=== PATIENT | male | born 1935 | race Caucasian/White ===

== ENCOUNTER 2020-03-02 09:02 | Outpatient (REF) | payer MEDICARE, SELFPAY ==
[2020-03-02 15:41] LABS: Glucose Urine UA NEG (NEG); Leukocyte Esterase Urine NEG (NEG); MANUAL DIFF FLAG NO; Nitrite Urine NEG (NEG); PH 5.5 (5.0-8.0); Urine Blood 2+ (NEG); Urine Ketones NEG (NEG); Urine Protein NEG (NEG-TRACE)
[2020-03-02 15:45] LABS: Basophils Percent Auto 0.6 % (0-2); Eosinophils Percent Auto 0.8 % (0-4); Hematocrit 40.2 % (42-52); Hemoglobin 12.9 g/dl (14.0-18.0); Imm Gran Abs Auto 0.11 X10*3/uL (0.00-0.03); Imm Gran Pct Auto 2.1 % (0.0-0.4); Lymphocytes Absolute Auto 0.8 X10*3/uL (1.2-4.9); Lymphocytes Percent Auto 16.1 % (20-40); Mean Corpuscular HGB Conc 32.1 g/dl (31.0-36.0); Mean Corpuscular Hemoglobin 31.5 pg (27.0-33.0); Mean Corpuscular Volume 98.3 fL (80-98); Mean Platelet Volume 11.6 fL (9.4-12.4); Monocytes Absolute Auto 0.4 X10*3/uL (0.1-1.2); Monocytes Percent Auto 7.8 % (2-11); NRBC Pct Auto 0.4 /100WBC (0.0-0.2); Neutrophils Absolute Auto 3.7 X10*3/uL (2.0-8.3); Neutrophils Percent Auto 72.6 % (45-73); Platelet Count 143 X10*3/uL (160-400); Red Blood Count 4.09 X10*6/uL (4.60-5.80); Red Cell Distribution Width 14.8 % (11.0-16.0); White Blood Count 5.1 X10*3/uL (4.8-10.8)
[2020-03-02 15:47] LABS: Appearance Urine CLEAR; Color Urine YELLOW
[2020-03-02 15:55] LABS: Squamous Epithelial Cell Urine 3+ /LPF; WBC Urine 0-2 /HPF (0-4)
[2020-03-02 16:14] LABS: B Type Natriuretic Peptide 977 pg/mL (<100)
[2020-03-02 16:30] LABS: Thyroid Stimulating Hormone 0.72 mIU/mL (0.32-4.0)
[2020-03-02 16:32] LABS: Alanine Aminotransferase < 6 U/L (0-40); Alkaline Phosphatase 1767 U/L (39-117); Anion Gap 14 (12-20); Aspartate Amino Transferase 23 U/L (5-37); Bilirubin Total 1.2 mg/dL (0.0-1.0); Blood Urea Nitrogen 32 mg/dL (9-16); Calcium 8.3 mg/dL (8.4-10.2); Carbon Dioxide 27 mmol/L (22-29); Chloride 107 mmol/L (96-108); Estimated Glomerular Filt Rate 59; Glucose Random 132 mg/dL (60-115); Potassium 3.9 mmol/l (3.3-5.1); Sodium 144 mmol/L (135-145); Total Protein 6.4 g/dL (6.5-8.0)
== END 2020-03-02 09:03 | disposition home or self-care (01) ==
LOC: CF 09:02
PROVIDERS: PCP Internal Medicine; Referring Provider Internal Medicine; Visit Provider Internal Medicine
DX: I25.10 Atherosclerotic heart disease of native coronary artery without angina pectoris (principal); I25.5 Ischemic cardiomyopathy
CPT/HCPCS: 36415; 80053; 81001; 83880; 84443; 85025; 85610

== ENCOUNTER 2020-03-03 14:29 | Outpatient (REF) | payer MEDICARE, SELFPAY ==
--- NOTE | 2020-03-03 | US_ITS ---
EXAMINATION: US VENOUS ULTRASOUND WITH DOPPLER LOWER EXTREMITY, LEFT CLINICAL INFORMATION: Left leg swelling. COMPARISON: Previous exam December 2018 TECHNIQUE: Ultrasound of the deep veins is performed from the hip to the calf with compression sonography and color and pulse Doppler assessment. Spectral analysis with color-flow imaging is performed. FINDINGS: There is normal venous compression and respiratory variation and augmented flow. The visualized common femoral vein, superficial femoral vein, profunda femoral vein, popliteal vein, and the trifurcation region show no evidence of deep venous thrombosis. There is very slow flow or Rouleaux flow. There also appear to be markedly thickened valve leaflets in the superficial femoral and popliteal veins. These are new findings compared to 2019 exam. There is no significant popliteal fossa cyst. US/US venous duplex LE LT IMPRESSION: No DVT demonstrated in the left lower extremity. There is very slow flow or Rouleaux flow and thickening of valve leaflets in the superficial femoral and popliteal veins. This is a new finding compared to December 2018 exam. Possible Covid infection should be considered. Short-term followup ultrasound exam may be helpful.
== END 2020-03-03 14:30 | disposition home or self-care (01) ==
LOC: HO.HMGCX 14:29
PROVIDERS: PCP Internal Medicine; Visit Provider Internal Medicine
DX: I82.409 Acute embolism and thrombosis of unspecified deep veins of unspecified lower extremity (principal)
CPT/HCPCS: 93971

== ENCOUNTER 2020-03-04 11:11 | Outpatient (REF) | payer MEDICARE, SELFPAY ==
[2020-03-04 13:19] LABS: C Reactive Protein 3.05 mg/dL (< or = 0.50)
[2020-03-04 13:45] LABS: Erythrocyte Sedimentation Rate 39 MM/HR (0-15)
== END 2020-03-04 11:12 | disposition home or self-care (01) ==
LOC: HO.LAB 11:11
PROVIDERS: PCP Internal Medicine; Visit Provider Internal Medicine
DX: Z20.828 Contact with and (suspected) exposure to other viral communicable diseases (principal)
CPT/HCPCS: 36415; 85652; 86140; 87635

== ENCOUNTER 2020-03-04 13:30 | Outpatient (REF) | payer SELFPAY | END 2020-03-04 13:31 | disposition home or self-care (01) | LOC: HO.HAP 13:30 | PROVIDERS: PCP Internal Medicine; Visit Provider Internal Medicine | DX: Z46.1 Encounter for fitting and adjustment of hearing aid (principal) | CPT/HCPCS: 85610; 92700 ==

== ENCOUNTER 2020-03-04 16:00 | Inpatient (IN) | payer MEDICARE, SELFPAY ==
[2020-03-04 16:18] VITALS: BP 99/66; PULSE 87; RESP 16; TEMP 36.4; O2SAT 95; BMI 20.7
[2020-03-04 16:36] VITALS: BP 99/72; PULSE 102; RESP 12; TEMP 36.5; O2SAT 95
--- NOTE | 2020-03-04 16:53 | XR_ITS ---
EXAMINATION: XR CHEST CLINICAL INFORMATION: CHF COMPARISON: Chest x-ray 12/11/2019 TECHNIQUE: Frontal view of the chest was obtained. FINDINGS: Cardiac silhouette is at the upper limits of normal in size. Ectatic thoracic aorta. The lungs are hyperinflated consistent with emphysematous changes. Linear opacities of the left lung base are most consistent with scarring. No gross lobar consolidation present. No pleural effusion or pneumothorax. XR/XR chest 1V IMPRESSION: Emphysematous changes of the lungs with bibasilar scarring. No lobar consolidation appreciated.
--- NOTE | 2020-03-04 16:53 | ECG_ITS ---
Test Reason : DYSPNEA Blood Pressure : / mmHG Vent. Rate : 089 BPM Atrial Rate : 090 BPM P-R Int : 000 ms QRS Dur : 090 ms QT Int : 386 ms P-R-T Axes : 000 -28 -18 degrees QTc Int : 469 ms Atrial fibrillation RSR' or QR pattern in V1 suggests right ventricular conduction delay Nonspecific ST abnormality Abnormal ECG When compared with ECG of 11-DEC-2019 18:11, No significant change was found Referred By: Juan Ferro Electronically Signed By:APRIL FARAH MD
--- NOTE | 2020-03-04 17:03 | ED_ITS ---
HPI - SOB/Dyspnea General Chief Complaint: Dyspnea Stated Complaint: chf Time Seen by Provider: 03/04/20 16:52 Source: patient and family Mode of arrival: ambulatory Limitations: altered mental status History of Present Illness HPI Narrative: patient's history of dementia [id number] HPI mostly from the . Patient does have history of AFib a 3 sclerotic heart disease status post cardiac stents on furosemide for chronic CHF noticed increased swelling of the legs especially the left for last 1 week at the Doppler done 2 days ago which was negative for blood clot lab showed elevated BNP 977 patient gets short winded when he ambulates otherwise at baseline in this nice does not have any shortness of breath patient denies any chest pain. Patient was sent by his primary care doctor for further evaluation and admission. Patient is on Coumadin for AFib and today INR was 3.5 patient denied any chest pain no fever no cough Related Data Home Medications Medication Instructions Recorded Confirmed atorvastatin 40 mg PO DAILY 03/04/20 03/04/20 carbidopa-levodopa 1 tab PO TID 03/04/20 03/04/20 donepezil 10 mg PO BEDTIME 03/04/20 03/04/20 furosemide 20 mg PO DAILY 03/04/20 03/04/20 metoprolol tartrate 25 mg PO BID 03/04/20 03/04/20 warfarin 2.5 mg PO SUTUTHSA@1600 03/04/20 03/04/20 warfarin 5 mg PO MOWEFR@1600 03/04/20 03/04/20 Previous Rx's Medication Instructions Recorded warfarin 5 mg tablet 5 mg PO DAILY #90 tab 03/02/20 Allergies Allergy/AdvReac Type Severity Reaction Status Date / Time penicillin V Allergy Unknown Rash Unverified 03/04/20 16:35 Penicillins Allergy Unknown SKIN Unverified 03/04/20 16:35 EXCORIATION HANDS Review of Systems Review of Systems: REVIEW OF SYSTEMS: Pertinent positives and negatives are stated above in the history. limited ROS because of dementia mostly given by his GEN: no fevers, chills, fatigue HEENT: no nasal congestion, sore throat, ear pain NEURO: no headache, dizziness, focal weakness PULM: no cough, CV: no chest pain, palpitations, LE edema ABD: no abdominal pain, nausea, vomiting, diarrhea : no dysuria, urgency, frequency SKIN: no rash ROS otherwise negative x 10 PMFSH Past Medical History Medical History A-fib CHF (congestive heart failure) CVA (cerebral vascular accident) Dementia High cholesterol [place] (hard of hearing) Parkinsons Social History Social History Alcohol intake: never Smoked in Last 30 Days: No Use of substances other than those prescribed or required for medical reasons: No Advance Directives: No Advance Directives Information Provided: No Physical Exam Vital Signs: Vital Signs: Vital Signs Temp Pulse Resp BP Pulse Ox 03/04/20 22:00 98.0 F 95 16 115/73 95 03/04/20 19:22 98.7 F 104 H 18 115/73 95 03/04/20 16:36 97.7 F 102 H 12 99/72 95 03/04/20 16:18 97.6 F 87 16 99/66 95 Body Mass Index 20.7 VITAL SIGNS: Reviewed. GENERAL: Well developed, thin built, in no acute distress. HEAD: Normocephalic/atraumatic, normal oral mucosa EYES: PERRLA, EOMI intact without pain, no nystagmus/pallor/icterus noted, hard of hearing EARS: Ext canals without abnormality, NOSE: Nares patent bilateral OROPHARYNX: no oral lesions noted, NECK: Supple, no adenopathy LUNGS: Normal breath sounds. No adventitious sounds or accessory muscle use CARDIOVASCULAR: IRRegular rate and rhythm without noted murmurs, no JVD 2+ leg edema left > right ABDOMEN: Soft, non-tender, non-distended with bowel sounds. No rigidity. No guarding. No palpable masses or hernias noted MUSCULOSKELETAL: No tenderness, deformities, or effusions noted on gross inspection. EXTREMITIES: No cyanosis, clubbing or edema. SKIN: Inspection of the skin reveals no rashes, ulcerations, jaundice, pallor, o r petechiae NEUROLOGIC: Alert and oriented x 2. Strength and sensation to light touch were grossly intact x 4. Course Course Course Narrative: patient with CHF with symptom symptomatic shortness of breath on minimal activities already on Lasix at home will continue same IV , also noticed that patient's alkaline phosphatase was significantly elevated CT scan abdomen showed multiple metastatic lesions in the spine primary source unknown also patient renal functions have distributed in last 2 days creatinine is increased from 1.1 to 2.02 will admit patient for further evaluation and management MDM - SOB/Dyspnea Lab Data Result diagrams: 03/04/20 17:22 03/04/20 17:22 Labs: Lab Results 03/04/20 03/04/20 03/04/20 Range/Units 17:22 17:22 17:22 WBC 5.1 (4.8-10.8) X10*3/uL RBC 3.73 L (4.60-5.80) X10*6/uL Hgb 12.0 L (14.0-18.0) g/dl Hct 36.5 L (42-52) % MCV 97.9 (80-98) fL MCH 32.2 (27.0-33.0) pg MCHC 32.9 (31.0-36.0) g/dl RDW 14.7 (11.0-16.0) % Plt Count 130 L (160-400) X10*3/uL MPV 11.3 (9.4-12.4) fL Immature Gran % (Auto) 1.8 H (0.0-0.4) % Neut % (Auto) 75.0 H (45-73) % Lymph % (Auto) 13.6 L (20-40) % Griggs % (Auto) 8.8 (2-11) % Eos % (Auto) 0.6 (0-4) % Baso % (Auto) 0.2 (0-2) % Lymph # (Auto) 0.7 L (1.2-4.9) X10*3/uL Griggs # (Auto) 0.5 (0.1-1.2) X10*3/uL Eos # (Auto) 0.0 (0.0-0.4) X10*3/uL Baso # (Auto) 0.0 (0.0-0.2) X10*3/uL Abs Immat Gran (auto) 0.09 H (0.00-0.03) X10*3/uL Absolute Neuts (auto) 3.9 (2.0-8.3) X10*3/uL Absolute Nucleated RBC 0.000 (0.0-0.012) X10*3/uL Nucleated RBC % (auto) 0.0 (0.0-0.2) /100WBC Smear Tech's Comments VERIFIED Hold Blue Top Sodium 143 (135-145) mmol/L Potassium 4.4 (3.3-5.1) mmol/l Chloride 107 (96-108) mmol/L Carbon Dioxide 24 (22-29) mmol/L Anion Gap 16 (12-20) BUN 45 H (9-16) mg/dL Creatinine 2.02 H (0.5-1.4) mg/dL Estim Creat Clear Calc 23.7 Estimated GFR 32 Random Glucose 98 (60-115) mg/dL Calcium 8.0 L (8.4-10.2) mg/dL Total Bilirubin 1.0 (0.0-1.0) mg/dL GGT (11-51) U/L AST 22 (5-37) U/L ALT < 6 (0-40) U/L Alkaline Phosphatase 1705 H (39-117) U/L Troponin I High Sens 39.5 H (<3.5-35.0) ng/L B-Natriuretic Peptide (<100) pg/mL Total Protein 6.2 L (6.5-8.0) g/dL Albumin 3.8 (3.5-5.0) g/dL Coronavirus (PCR) (Negative) 03/04/20 03/04/20 03/04/20 Range/Units 17:22 17:22 20:41 WBC (4.8-10.8) X10*3/uL RBC (4.60-5.80) X10*6/uL Hgb (14.0-18.0) g/dl Hct (42-52) % MCV (80-98) fL MCH (27.0-33.0) pg MCHC (31.0-36.0) g/dl RDW (11.0-16.0) % Plt Count (160-400) X10*3/uL MPV (9.4-12.4) fL Immature Gran % (Auto) (0.0-0.4) % Neut % (Auto) (45-73) % Lymph % (Auto) (20-40) % Griggs % (Auto) (2-11) % Eos % (Auto) (0-4) % Baso % (Auto) (0-2) % Lymph # (Auto) (1.2-4.9) X10*3/uL Griggs # (Auto) (0.1-1.2) X10*3/uL Eos # (Auto) (0.0-0.4) X10*3/uL Baso # (Auto) (0.0-0.2) X10*3/uL Abs Immat Gran (auto) (0.00-0.03) X10*3/uL Absolute Neuts (auto) (2.0-8.3) X10*3/uL Absolute Nucleated RBC (0.0-0.012) X10*3/uL Nucleated RBC % (auto) (0.0-0.2) /100WBC Smear Tech's Comments Hold Blue Top SEE NOTE Sodium (135-145) mmol/L Potassium (3.3-5.1) mmol/l Chloride (96-108) mmol/L Carbon Dioxide (22-29) mmol/L Anion Gap (12-20) BUN (9-16) mg/dL Creatinine (0.5-1.4) mg/dL Estim Creat Clear Calc Estimated GFR Random Glucose (60-115) mg/dL Calcium (8.4-10.2) mg/dL Total Bilirubin (0.0-1.0) mg/dL GGT 15 (11-51) U/L AST (5-37) U/L ALT (0-40) U/L Alkaline Phosphatase (39-117) U/L Troponin I High Sens (<3.5-35.0) ng/L B-Natriuretic Peptide 815 H (<100) pg/mL Total Protein (6.5-8.0) g/dL Albumin (3.5-5.0) g/dL Coronavirus (PCR) (Negative) 03/04/20 03/04/20 Range/Units 20:41 22:22 WBC (4.8-10.8) X10*3/uL RBC (4.60-5.80) X10*6/uL Hgb (14.0-18.0) g/dl Hct (42-52) % MCV (80-98) fL MCH (27.0-33.0) pg MCHC (31.0-36.0) g/dl RDW (11.0-16.0) % Plt Count (160-400) X10*3/uL MPV (9.4-12.4) fL Immature Gran % (Auto) (0.0-0.4) % Neut % (Auto) (45-73) % Lymph % (Auto) (20-40) % Griggs % (Auto) (2-11) % Eos % (Auto) (0-4) % Baso % (Auto) (0-2) % Lymph # (Auto) (1.2-4.9) X10*3/uL [place]gs # (Auto) (0.1-1.2) X10*3/uL Eos # (Auto) (0.0-0.4) X10*3/uL Baso # (Auto) (0.0-0.2) X10*3/uL Abs Immat Gran (auto) (0.00-0.03) X10*3/uL Absolute Neuts (auto) (2.0-8.3) X10*3/uL Absolute Nucleated RBC (0.0-0.012) X10*3/uL Nucleated RBC % (auto) (0.0-0.2) /100WBC Smear Tech's Comments Hold Blue Top Sodium (135-145) mmol/L Potassium (3.3-5.1) mmol/l Chloride (96-108) mmol/L Carbon Dioxide (22-29) mmol/L Anion Gap (12-20) BUN (9-16) mg/dL Creatinine (0.5-1.4) mg/dL Estim Creat Clear Calc Estimated GFR Random Glucose (60-115) mg/dL Calcium (8.4-10.2) mg/dL Total Bilirubin (0.0-1.0) mg/dL GGT (11-51) U/L AST (5-37) U/L ALT (0-40) U/L Alkaline Phosphatase (39-117) U/L Troponin I High Sens 40.7 H (<3.5-35.0) ng/L B-Natriuretic Peptide (<100) pg/mL Total Protein (6.5-8.0) g/dL Albumin (3.5-5.0) g/dL Coronavirus (PCR) NEGATIVE (Negative) Discharge Plan Discharge Clinical Impression: Congestive heart failure Qualifiers: Heart failure type: systolic Heart failure chronicity: acute Qualified Code(s): I50.21 - Acute systolic (congestive) heart failure Renal failure, acute Qualifiers: Acute renal failure type: with acute tubular necrosis Qualified Code(s): N17.0 - Acute kidney failure with tubular necrosis Metastasis Qualifiers: Area of secondary neoplastic involvement: unspecified site Qualified Code(s): 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
[2020-03-04] MEDS: Furosemide 20 MG/2 ML VIAL IVPUSH (17:30)
[2020-03-04 17:33] LABS: MANUAL DIFF FLAG SCAN; Mean Corpuscular Volume 97.9 fL (80-98); PLT CLUMP 1; Red Cell Distribution Width 14.7 % (11.0-16.0); SCAN SMEAR FLAG 1
[2020-03-04 17:35] LABS: Basophils Percent Auto 0.2 % (0-2); Eosinophils Percent Auto 0.6 % (0-4); Hematocrit 36.5 % (42-52); Imm Gran Abs Auto 0.09 X10*3/uL (0.00-0.03); Imm Gran Pct Auto 1.8 % (0.0-0.4); Lymphocytes Absolute Auto 0.7 X10*3/uL (1.2-4.9); Lymphocytes Percent Auto 13.6 % (20-40); Mean Corpuscular HGB Conc 32.9 g/dl (31.0-36.0); Mean Corpuscular Hemoglobin 32.2 pg (27.0-33.0); Mean Platelet Volume 11.3 fL (9.4-12.4); Monocytes Absolute Auto 0.5 X10*3/uL (0.1-1.2); Monocytes Percent Auto 8.8 % (2-11); Neutrophils Absolute Auto 3.9 X10*3/uL (2.0-8.3); Platelet Count 130 X10*3/uL (160-400); Red Blood Count 3.73 X10*6/uL (4.60-5.80); White Blood Count 5.1 X10*3/uL (4.8-10.8)
[2020-03-04 17:55] LABS: SLIDE REVIEW VERIFIED
[2020-03-04 18:35] LABS: B Type Natriuretic Peptide 815 pg/mL (<100)
[2020-03-04 18:41] LABS: Albumin Level 3.8 g/dL (3.5-5.0); Anion Gap 16 (12-20); Blood Urea Nitrogen 45 mg/dL (9-16); Carbon Dioxide 24 mmol/L (22-29); Chloride 107 mmol/L (96-108); Creatinine Clr Calc Pharmacy 23.7; Estimated Glomerular Filt Rate 32; Glucose Random 98 mg/dL (60-115); Potassium 4.4 mmol/l (3.3-5.1); Sodium 143 mmol/L (135-145); Total Protein 6.2 g/dL (6.5-8.0); Troponin-I High Sensitivity 39.5 ng/L (<3.5-35.0)
[2020-03-04 18:52] LABS: Alanine Aminotransferase < 6 U/L (0-40); Alkaline Phosphatase 1705 U/L (39-117); Aspartate Amino Transferase 22 U/L (5-37)
--- NOTE | 2020-03-04 18:58 | PC.NURSE ---
PT ARRIVES REFERRED FROM URGENT CARE C/O DYSPNEA, MALAISE, ABNORMAL LABS. HX DEMENTIA. DELROY AT BEDSIDE. 22G IN L FOREARM. LS DIM THROUGHOUT. LEFT LEG SWELLING OVER PAST FEW DAYS. DELROY HAD TO LEAVE BEDSIDE [phone], [phone] CELLPHONE. WOULD LIKE UPDATES
[2020-03-04 19:22] VITALS: BP 115/73; PULSE 104; RESP 18; TEMP 37.1; O2SAT 95
--- NOTE | 2020-03-04 19:28 | CT_ITS ---
EXAMINATION: CT ABDOMEN AND PELVIS WITHOUT CONTRAST CLINICAL INFORMATION: elevated alkaline phosphatase etiology? . COMPARISON: 02/23/2019 CT scan of the pelvis. TECHNIQUE: Multidetector volumetric imaging was performed from the superior aspect of the liver through the pubic symphysis without contrast per request. Sagittal and coronal reformatted images were obtained on the technologist workstation. This CT examination was performed using dose optimization techniques as appropriate, variously including the following: *Automated exposure control *Adjustment of mA and/or kV according to patient size (this includes techniques or standardized protocols for targeted exams where dose is matched to indication/reason for exam; i.e. extremities or head) *Use of iterative reconstruction technique DLP: 388 mGy-cm. FINDINGS: LUNG BASES: Linear regions of scarring or atelectasis are seen at both lung bases. Extensive vascular calcification within the coronary vessels LIVER, GALLBLADDER, BILIARY TREE: The non-contrast liver is normal in size, shape, and attenuation. No focal hepatic lesion or biliary ductal dilatation is present. The gallbladder is unremarkable with no evidence of radiopaque gallstones, gallbladder wall thickening, or obvious pericholecystic inflammatory changes. PANCREAS: Not well delineated due to the lack of significant intra-abdominal fat. SPLEEN: Unremarkable. ADRENAL GLANDS: Unremarkable. KIDNEYS AND URETERS: Mild fullness to both renal collecting systems. Ureters are difficult to follow however due to lack of significant intra-abdominal fat. BLADDER: Dependent bladder calculi again noted. Bladder is distended. GASTROINTESTINAL TRACT: There is scattered colonic diverticula noted. I do not appreciate any obstructive changes. Fine detailed bowel is difficult to assess due to the lack of significant intra-abdominal fat ABDOMINAL WALL: Diffuse cachexia. LYMPHOVASCULAR STRUCTURES: Marked vascular calcification within the aorta iliac system. I do not appreciate any bulky adenopathy. PELVIC VISCERA: Prostatic calcifications noted OSSEUS STRUCTURES: Unfortunately there is now diffuse sclerotic bony metastatic lesions seen throughout the visualized hips, pelvis, spine, and ribs. The bones are more normal appearance on the 02/23/2019 CT scan of the pelvis. Compression hip screw in the right femur is partially visualized. CT/CT abdomen pelvis wo con IMPRESSION: Unfortunately there is now diffuse sclerotic metastatic disease seen throughout the visualized bony structures. This had a more normal appearance on the prior pelvic CT scan. Clinical correlation and correlation with nuclear medicine bone scan may be helpful to define further. There is diffuse cachexia limiting evaluation otherwise. The bladder is relatively distended with the fullness to both renal pelvises. Bladder calculi noted suggesting component of chronic bladder outlet obstruction.
[2020-03-04 21:17] LABS: Gamma Glutamyl Transpeptidase 15 U/L (11-51)
[2020-03-04 21:40] LABS: Troponin-I High Sensitivity 40.7 ng/L (<3.5-35.0)
[2020-03-04 22:00] VITALS: BP 115/73; PULSE 95; RESP 16; TEMP 36.7; O2SAT 95
--- NOTE | 2020-03-04 22:53 | P.HPIM_ITS ---
History of Present Illness Date of Service: 03/04/20 Chief Complaint: Leg swelling This is a 84 yo M with pmhx A.fib on coumadin, HTN, vascular dementia , parkinsons ds who presents to the hospital Leg swelling. History is obtained from as patient is very hard of hearing and is refusing to wear his hearing aid. According to the patient has been suffering from swelling in his legs, left more than right, as well as increased shortness of breath on exertion over the past few weaks. reports that they have been to pcp which ordered labs, venous dupplex and they followed up today. Was first concerned for cellulitis, but after seeing the lab results, Primary care asked pt and his to go to the hospital. reports that pt has been becoming progressively more sob and has been needing to use his walker because he would need to sit down after walking a short distance. SHe denies pt reporting any cp, he has not had any fever or chills. He Has not reported any abdominal pain nausea or vomiting, diarrhea or constipation. She denies patient complaining of any urinary symptoms. On arrival to the ED hemodynamically stable with no significant abnormal vitals lab significant for BUN of 45 with a creatinine of 2.02 ( 1.18 in the past day), alk-phos of 1705, high sensitivity troponin of 39.5, repeat of 40.7, BNP of 977 on outpatient diagnostic and 815 on repeat labs in the ED UA pending chest x-ray shows: emphysematous changes of the lung with bibasilar scarring. No lobarconsolidation appreciated. due to elevated alk-phos, CT of the abdomen was ordered which showed diffuse sclerotic metastatic disease seen throughout the visualized bony structures. Past medical history: congestive heart failure,Parkinson's disease, vascular dementia, stroke, atrial fibrillation, HLD, hypertension past surgical history: Hernia repair family history: Mother had pancreatic cancer social history: Lives with his , uses a cane but has been using a walker lately due to shortness of breath, denies any tobacco alcohol or illicit drugs at this time Review of Systems Review of Systems: Yes all other systems are reviewed and are negative [facility] Medical History A-fib CHF (congestive heart failure) CVA (cerebral vascular accident) Dementia High cholesterol [place] (hard of hearing) Parkinsons Social History Alcohol intake: never Smoked in Last 30 Days: No Use of substances other than those prescribed or required for medical reasons: No Advance Directives: No Advance Directives Information Provided: No Meds Allergies Allergy/AdvReac Type Severity Reaction Status Date / Time penicillin V Allergy Unknown Rash Unverified 03/04/20 16:35 Penicillins Allergy Unknown SKIN Unverified 03/04/20 16:35 EXCORIATION HANDS Home Medications Medication Instructions Recorded Confirmed Type atorvastatin 40 mg PO DAILY 03/04/20 03/04/20 History carbidopa-levodopa 1 tab PO TID 03/04/20 03/04/20 History donepezil 10 mg PO BEDTIME 03/04/20 03/04/20 History furosemide 20 mg PO DAILY 03/04/20 03/04/20 History metoprolol tartrate 25 mg PO BID 03/04/20 03/04/20 History warfarin 2.5 mg PO SUTUTHSA@1600 03/04/20 03/04/20 History warfarin 5 mg PO MOWEFR@1600 03/04/20 03/04/20 History Physical Exam Vital Signs and Narrative: Vital Signs: Last Vital Signs Temp 98.0 F 03/04/20 22:00 Pulse 95 03/04/20 22:00 Resp 16 03/04/20 22:00 BP 115/73 03/04/20 22:00 Pulse Ox 95 03/04/20 22:00 Body Mass Index 20.7 Const: Other: very hard of hearing and is refusing to wear his hearing aid General: comfortable and no acute distress HENMT: Other: hard of hearing Eyes: General: appearance normal, both eyes and all related structures Pupils: Equal, round and reactive pupils present Resp: Effort & Inspection: normal respiratory effort Auscultation: clear to auscultation bilaterally Cardio: Rate: regular rate Rhythm: regular rhythm GI: Palpation (GI): Soft to palpation Auscultation: normal bowel sounds Skin: General skin exam: no rashes or lesions noted Neuro: Cranial nerves: Yes Equal, round and reactive pupils present Cognition (Neuro): normal cognition Extrem: Other: 2+ pitting edema bilaterally Results Labs Labs: Laboratory Tests 03/04/20 03/04/20 03/04/20 17:22 17:22 17:22 WBC 5.1 RBC 3.73 L Hgb 12.0 L Hct 36.5 L MCV 97.9 MCH 32.2 MCHC 32.9 RDW 14.7 Plt Count 130 L MPV 11.3 Immature Gran % (Auto) 1.8 H Neut % (Auto) 75.0 H Lymph % (Auto) 13.6 L Coffee % (Auto) 8.8 Eos % (Auto) 0.6 Baso % (Auto) 0.2 Lymph # (Auto) 0.7 L Coffee # (Auto) 0.5 Eos # (Auto) 0.0 Baso # (Auto) 0.0 Abs Immat Gran (auto) 0.09 H Absolute Neuts (auto) 3.9 Absolute Nucleated RBC 0.000 Nucleated RBC % (auto) 0.0 Smear Tech's Comments VERIFIED Hold Blue Top Sodium 143 Potassium 4.4 Chloride 107 Carbon Dioxide 24 Anion Gap 16 BUN 45 H Creatinine 2.02 H Estim Creat Clear Calc 23.7 Estimated GFR 32 Random Glucose 98 Calcium 8.0 L Total Bilirubin 1.0 GGT AST 22 ALT < 6 Alkaline Phosphatase 1705 H Troponin I High Sens 39.5 H B-Natriuretic Peptide Total Protein 6.2 L Albumin 3.8 03/04/20 03/04/20 03/04/20 17:22 17:22 20:41 WBC RBC Hgb Hct MCV MCH MCHC RDW Plt Count MPV Immature Gran % (Auto) Neut % (Auto) Lymph % (Auto) Coffee % (Auto) Eos % (Auto) Baso % (Auto) Lymph # (Auto) Coffee # (Auto) Eos # (Auto) Baso # (Auto) Abs Immat Gran (auto) Absolute Neuts (auto) Absolute Nucleated RBC Nucleated RBC % (auto) Smear Tech's Comments Hold Blue Top SEE NOTE Sodium Potassium Chloride Carbon Dioxide Anion Gap BUN Creatinine Estim Creat Clear Calc Estimated GFR Random Glucose Calcium Total Bilirubin GGT 15 AST ALT Alkaline Phosphatase Troponin I High Sens B-Natriuretic Peptide 815 H Total Protein Albumin 03/04/20 20:41 WBC RBC Hgb Hct MCV MCH MCHC RDW Plt Count MPV Immature Gran % (Auto) Neut % (Auto) Lymph % (Auto) Coffee % (Auto) Eos % (Auto) Baso % (Auto) Lymph # (Auto) Coffee # (Auto) Eos # (Auto) Baso # (Auto) Abs Immat Gran (auto) Absolute Neuts (auto) Absolute Nucleated RBC Nucleated RBC % (auto) Smear Tech's Comments Hold Blue Top Sodium Potassium Chloride Carbon Dioxide Anion Gap BUN Creatinine Estim Creat Clear Calc Estimated GFR Random Glucose Calcium Total Bilirubin GGT AST ALT Alkaline Phosphatase Troponin I High Sens 40.7 H B-Natriuretic Peptide Total Protein Albumin Imaging CT scan - abdomen: Radiologist's impression: IMPRESSION: Unfortunately there is now diffuse sclerotic metastatic disease seen throughout the visualized bony structures. This had a more normal appearance on the prior pelvic CT scan. Clinical correlation and correlation with nuclear medicine bone scan may be helpful to define further. There is diffuse cachexia limiting evaluation otherwise. The bladder is relatively distended with the fullness to both renal pelvises. Bladder calculi noted suggesting component of chronic bladder outlet obstruction. Assessment and Plan (1) CHF exacerbation: Status: Acute (2) Renal failure, acute: Qualifiers: Acute renal failure type: with acute tubular necrosis Qualified Code(s): N17.0 - Acute kidney failure with tubular necrosis Status: Acute (3) Metastasis: Qualifiers: Area of secondary neoplastic involvement: unspecified site Qualified Code(s): C79.9 - Secondary malignant neoplasm of unspecified site Status: Acute (4) Parkinsons: Status: Acute (5) Dementia: Status: Acute (6) CVA (cerebral vascular accident): Status: Acute (7) A-fib: Status: Acute (8) Current use of anticoagulant therapy: Status: Acute this is a 84-year-old male who presents to the hospital with bilateral lower extremity swelling and dyspnea on exertion found to have CHF exacerbation as well as incidental finding of neurotic bone metastasis # CHF exacerbation - has elevated BNP, dyspnea on exertion, lower extremity edema, unable to assess for any orthopnea or PND - Patient is on furosemide home - last echo was done in 2010 showed ejection fraction of 55- 60%, plan: - will start patient on Lasix 40 IV b.i.d. -low-sodium diet, daily weight, strict I&O -echocardiogram -cardiology consult # dyspnea on exertion - secondary to CHF exacerbation - currently on room air satting 94% Plan: Will start him on IV Lasix, and monitor respiratory status # HUNTER - most likely prerenal in the setting of heart failure Plan: - Will start patient on Lasix, follow BMP # sclerotic metastatic disease - Appears to be an incidental finding - will consult Hematology-Oncology for further workup # AFib - who Coumadin and metoprolol - pending PT INR - for his INR has been supratherapeutic plan: - Continue metoprolol, warfarin pending the INR - PT INR daily # Parkinson's disease - continue carbidopa levodopa DVT prophylaxis: Warfarin
[2020-03-04 23:23] LABS: SARS COV2 PCR INHOUSE NEGATIVE (Negative)
--- NOTE | 2020-03-04 23:52 | PC.NURSE ---
rn to rn with luis fernando on [facility] [place]
[2020-03-05] VITALS (9 sets, daily range): BP systolic 91–112; BP diastolic 60–71; PULSE 68–87; RESP 14–18; TEMP 36.4–36.8; O2SAT 92–100; BMI 20.4
[2020-03-05 00:35] LABS: Glucose Urine UA NEG (NEG); Leukocyte Esterase Urine NEG (NEG); Nitrite Urine NEG (NEG); PH 5.5 (5.0-8.0); Specific Gravity - Urine 1.015 (1.005-1.025); UACC Culture Trigger NO; Urine Blood 3+ (NEG); Urine Ketones NEG (NEG); Urine Protein TRACE MG/DL (NEG-TRACE)
[2020-03-05 00:37] LABS: Appearance Urine HAZY; Color Urine AMBER
[2020-03-05 00:45] LABS: Amorphous Sediment Urine 2+ /LPF; Squamous Epithelial Cell Urine 1+ /LPF
[2020-03-05] MEDS: 0.9 % Sodium Chloride Flush 3 ML SYRINGE IVFLUSH ×3 (01:07→16:24)
[2020-03-05] MEDS: Metoprolol Tartrate 25 MG TABLET PO ×3 (01:07→21:20)
[2020-03-05] MEDS: Donepezil HCl 10 MG TABLET PO ×2 (01:08→21:21)
[2020-03-05] MEDS: Carbidopa/Levodopa 25/100 TABLET 1 TAB PO ×4 (01:08→21:21)
[2020-03-05 06:18] LABS: MANUAL DIFF FLAG NO
[2020-03-05 06:33] LABS: Basophils Percent Auto 0.5 % (0-2); Eosinophils Percent Auto 0.7 % (0-4); Hematocrit 35.9 % (42-52); Hemoglobin 11.4 g/dl (14.0-18.0); Imm Gran Abs Auto 0.12 X10*3/uL (0.00-0.03); Imm Gran Pct Auto 2.8 % (0.0-0.4); Lymphocytes Absolute Auto 0.7 X10*3/uL (1.2-4.9); Lymphocytes Percent Auto 16.3 % (20-40); Mean Corpuscular HGB Conc 31.8 g/dl (31.0-36.0); Mean Corpuscular Hemoglobin 31.2 pg (27.0-33.0); Mean Corpuscular Volume 98.4 fL (80-98); Mean Platelet Volume 11.3 fL (9.4-12.4); Monocytes Absolute Auto 0.4 X10*3/uL (0.1-1.2); Monocytes Percent Auto 8.4 % (2-11); Neutrophils Absolute Auto 3.1 X10*3/uL (2.0-8.3); Neutrophils Percent Auto 71.3 % (45-73); Platelet Count 121 X10*3/uL (160-400); Red Blood Count 3.65 X10*6/uL (4.60-5.80); Red Cell Distribution Width 14.6 % (11.0-16.0); White Blood Count 4.3 X10*3/uL (4.8-10.8)
[2020-03-05 06:52] LABS: INTERNATIONAL NORM RATIO 2.6 (0.9-1.1); Prothrombin Time 31.1 SEC (10.8-13.0)
[2020-03-05 06:59] LABS: Anion Gap 16 (12-20); Blood Urea Nitrogen 42 mg/dL (9-16); Calcium 7.9 mg/dL (8.4-10.2); Carbon Dioxide 25 mmol/L (22-29); Chloride 108 mmol/L (96-108); Creatinine Clr Calc Pharmacy 30.9; Estimated Glomerular Filt Rate 44; Glucose Random 72 mg/dL (60-115); Sodium 145 mmol/L (135-145)
--- NOTE | 2020-03-05 08:51 | MHC.CM.PN ---
IMM 03/05/20 MALE DX HF. HE LIVES WITH HIS . HE RECEIVES ASSIST FROM FAMILY FOR ADLS. HE USES A WALKER TO AMBULATE. HE REQUIRES ASSIST AND SUPERVISION DUE TO DEMENTIA. PT IS [place]. DP HOME WITH FAMILY ASSIST AND TRANSPORT, PENDING FURTHER NEEDS ASSESSMENT. cm WILL FOLLOW
[2020-03-05] MEDS: Furosemide 40 MG/4 ML VIAL IVPUSH (10:05)
[2020-03-05] MEDS: Atorvastatin Calcium 40 MG TABLET PO (10:05)
--- NOTE | 2020-03-05 10:20 | MHC.CLN ---
PT IS MILDLY MALNOURISHED WILL ADD ENSURE TO INCREASE KCALS SEE ALSO NUTRITION ASSESSMENT
--- NOTE | 2020-03-05 10:50 | P.CONCA_ITS ---
History of Present Illness History of Present Illness Date of Consult: March 05, 2020 Requesting physician: Aaron Knott Consult reason: congestive heart failure Chief complaint: chf/HEART FAILURE Narrative: Thank you for inviting us fall consult on Lakhwinder, 84-year-old man with prior history of Parkinson's disease, orthostatic hypotension, systolic heart failure secondary to ischemic cardiomyopathy with last recorded LVEF of 30% by echocardiogram at [facility], reported dementia, hard of hearing, chronic atrial fibrillation. Patient was brought to the emergency room by his due to progressive bilateral lower extremity swelling as well as progressive exertional shortness of breath requiring walker to ambulate. Patient at this time does not clearly recall why he came to the hospital. However he says when he came to the hospital he had pain and swelling in both his lower extremities, left greater than right. The symptoms have improved. He has diuresed about 1500 cc negative output. At current time he says he does not have any breathing difficulties. He is resting comfortably in chair. He does not recall having any chest discomfort. He denied any symptoms of palpitations. On admission he was in atrial fibrillation with rapid ventricular response. His BNP was elevated. His creatinine also significantly elevated compared to his baseline. Since diuresis his creatinine is improved. His blood pressure is borderline low. From the outpatient cardiology office note by Dr. Lopez, it appears that his diuretic dosing was being altered due to history of orthostatic hypertension. There is no clear reported history of any recent systemic symptoms. Denies any high salt intake diet. Review of Systems Review of Systems: Difficult to obtain from the patient, his recent review of system due to his memory Constitutional: Comments: Denies any current symptoms of feeling fever, fatigue, lack of appetite. He does not recall any weight gain weight loss issues. Eyes: Eyes: Reports no additional eye complaints ENT: Comments: Patient is hard of hearing Cardiovascular: Cardiovascular: Reports leg edema (Bilateral, left greater than right with discomfort in the left lower extrem) and Reports dyspnea on exertion (Reported in the HP) Respiratory: Respiratory: Reports no additional respiratory complaints Gastrointestinal: Gastrointestinal: Reports no additional gastrointestinal complaints Genitourinary: Genitourinary: Reports hematuria (Noted in the urinary catheter) Musculoskeletal: Musculoskeletal: Reports no additional musculoskeletal complaints Neurologic: Reports system reviewed and no additional complaints, except as documented PMFSH Past Medical History Medical History A-fib CHF (congestive heart failure) CVA (cerebral vascular accident) Dementia High cholesterol THREE AFFILIATED (hard of hearing) Ischemic cardiomyopathy Orthostatic hypotension Parkinsons Social History Social History Household Members: Spouse Housing: Unknown / Unable to assess Alcohol intake: never Smoking Status: Never smoker Smoked in Last 30 Days: No Second Hand Smoke Exposure: No Use of substances other than those prescribed or required for medical reasons: No Currently Displaying Signs/Symptoms of Drug Intoxication Withdrawal: No Advance Directives: No Advance Directives Information Provided: No Do you have thoughts of harming others: None Do you have a plan to hurt others: No Plan Recently lost weight without trying: Unsure service: Yes Current occupational status: retired Meds Allergies Allergy/AdvReac Type Severity Reaction Status Date / Time penicillin V Allergy Unknown Rash Unverified 03/04/20 16:35 Penicillins Allergy Unknown SKIN Unverified 03/04/20 16:35 EXCORIATION HANDS Home Medications Medication Instructions Recorded Confirmed Type atorvastatin 40 mg PO DAILY 03/04/20 03/04/20 History carbidopa-levodopa 1 tab PO TID 03/04/20 03/04/20 History donepezil 10 mg PO BEDTIME 03/04/20 03/04/20 History furosemide 20 mg PO DAILY 03/04/20 03/04/20 History metoprolol tartrate 25 mg PO BID 03/04/20 03/04/20 History warfarin 2.5 mg PO SUTUTHSA@1600 03/04/20 03/04/20 History warfarin 5 mg PO MOWEFR@1600 03/04/20 03/04/20 History Physical Exam Vital Signs: Vital Signs: Vital Signs Temp Pulse Resp BP Pulse Ox 03/05/20 07:06 97.7 F 74 16 104/62 100 03/05/20 03:18 97.5 F 74 16 103/70 94 03/05/20 01:07 83 112/66 03/05/20 00:00 98.0 F 83 16 112/66 98 03/04/20 22:00 98.0 F 95 16 115/73 95 03/04/20 19:22 98.7 F 104 H 18 115/73 95 03/04/20 16:36 97.7 F 102 H 12 99/72 95 10/28/20 16:18 97.6 F 87 16 99/66 95 Body Mass Index 20.4 Const: General: cooperative, no acute distress and alert Nutritional Appearance: underweight Orientation/consciousness: oriented to person HENMT: Head: Yes normal to inspection, Yes normocephalic and Yes atraumatic Ears: hearing grossly impaired Eyes: General: appearance normal, both eyes and all related structures Neck: Neck: Yes trachea midline, Yes supple and Yes no JVD Chest: Chest palpation & inspection: normal inspection of the chest Resp: Effort & Inspection: normal respiratory effort Auscultation: diminished lung sounds and other (No rales) Cardio: Jugular venous distension: no JVD Palpation: abnormal PMI displaced PMI Rhythm: abnormal rhythm irregularly irregular Heart sounds: S1 normal heart sound present, S2 normal heart sound present and Murmur heart sound present systolic late and at the apex GI: Inspection: Yes normal to inspection Auscultation: normal bowel sounds Skin: General skin exam: elasticity normal and ecchymosis Neuro: General: oriented to person and no focal motor deficits Extrem: General: Yes no clubbing, cyanosis or edema Left lower extremity: lower leg Details: erythema Location: of the mid lower leg Location: laterally Psych: Appearance: grossly normal Results Labs and Meds Result diagrams: 03/05/20 05:19 03/05/20 05:19 Lab results: Laboratory Results - last 24 hr 03/04/20 03/04/20 03/04/20 17:22 17:22 17:22 WBC 5.1 RBC 3.73 L Hgb 12.0 L Hct 36.5 L MCV 97.9 MCH 32.2 MCHC 32.9 RDW 14.7 Plt Count 130 L MPV 11.3 Immature Gran % (Auto) 1.8 H Neut % (Auto) 75.0 H Lymph % (Auto) 13.6 L [place] % (Auto) 8.8 Eos % (Auto) 0.6 Baso % (Auto) 0.2 Lymph # (Auto) 0.7 L [place] # (Auto) 0.5 Eos # (Auto) 0.0 Baso # (Auto) 0.0 Abs Immat Gran (auto) 0.09 H Absolute Neuts (auto) 3.9 Absolute Nucleated RBC 0.000 Nucleated RBC % (auto) 0.0 Smear Tech's Comments VERIFIED PT INR Hold Blue Top Sodium 143 Potassium 4.4 Chloride 107 Carbon Dioxide 24 Anion Gap 16 BUN 45 H Creatinine 2.02 H Estim Creat Clear Calc 23.7 Estimated GFR 32 Random Glucose 98 Calcium 8.0 L Total Bilirubin 1.0 GGT AST 22 ALT < 6 Alkaline Phosphatase 1705 H Troponin I High Sens 39.5 H B-Natriuretic Peptide Total Protein 6.2 L Albumin 3.8 Urine Color Urine Appearance Urine pH Ur Specific [place] Urine Protein Urine Glucose (UA) Urine Ketones Urine Blood Urine Nitrite Ur Leukocyte Esterase Urine RBC Urine WBC Ur Squamous Epith Cells Amorphous Sediment Urine Bacteria Coronavirus (PCR) 03/04/20 03/04/20 03/04/20 17:22 17:22 20:41 WBC RBC Hgb Hct MCV MCH MCHC RDW Plt Count MPV Immature Gran % (Auto) Neut % (Auto) Lymph % (Auto) [place] % (Auto) Eos % (Auto) Baso % (Auto) Lymph # (Auto) [place] # (Auto) Eos # (Auto) Baso # (Auto) Abs Immat Gran (auto) Absolute Neuts (auto) Absolute Nucleated RBC Nucleated RBC % (auto) Smear Tech's Comments PT INR Hold Blue Top SEE NOTE Sodium Potassium Chloride Carbon Dioxide Anion Gap BUN Creatinine Estim Creat Clear Calc Estimated GFR Random Glucose Calcium Total Bilirubin GGT 15 AST ALT Alkaline Phosphatase Troponin I High Sens B-Natriuretic Peptide 815 H Total Protein Albumin Urine Color Urine Appearance Urine pH Ur Specific [place] Urine Protein Urine Glucose (UA) Urine Ketones Urine Blood Urine Nitrite Ur Leukocyte Esterase Urine RBC Urine WBC Ur Squamous Epith Cells Amorphous Sediment Urine Bacteria Coronavirus (PCR) 03/04/20 03/04/20 03/05/20 20:41 22:22 00:10 WBC RBC Hgb Hct MCV MCH MCHC RDW Plt Count MPV Immature Gran % (Auto) Neut % (Auto) Lymph % (Auto) [place] % (Auto) Eos % (Auto) Baso % (Auto) Lymph # (Auto) [place] # (Auto) Eos # (Auto) Baso # (Auto) Abs Immat Gran (auto) Absolute Neuts (auto) Absolute Nucleated RBC Nucleated RBC % (auto) Smear Tech's Comments PT INR Hold Blue Top Sodium Potassium Chloride Carbon Dioxide Anion Gap BUN Creatinine Estim Creat Clear Calc Estimated GFR Random Glucose Calcium Total Bilirubin GGT AST ALT Alkaline Phosphatase Troponin I High Sens 40.7 H B-Natriuretic Peptide Total Protein Albumin Urine Color DICKSON Urine Appearance HAZY Urine pH 5.5 Ur Specific [place] 1.015 Urine Protein TRACE Urine Glucose (UA) NEG Urine Ketones NEG Urine Blood 3+ H Urine Nitrite NEG Ur Leukocyte Esterase NEG Urine RBC 76-150 H Urine WBC 1-4 Ur Squamous Epith Cells 1+ Amorphous Sediment 2+ Urine Bacteria NONE Coronavirus (PCR) NEGATIVE 03/05/20 03/05/20 03/05/20 05:19 05:19 05:19 WBC 4.3 L RBC 3.65 L Hgb 11.4 L Hct 35.9 L MCV 98.4 H MCH 31.2 MCHC 31.8 RDW 14.6 Plt Count 121 L MPV 11.3 Immature Gran % (Auto) 2.8 H Neut % (Auto) 71.3 Lymph % (Auto) 16.3 L [place] % (Auto) 8.4 Eos % (Auto) 0.7 Baso % (Auto) 0.5 Lymph # (Auto) 0.7 L [place] # (Auto) 0.4 Eos # (Auto) 0.0 Baso # (Auto) 0.0 Abs Immat Gran (auto) 0.12 H Absolute Neuts (auto) 3.1 Absolute Nucleated RBC 0.000 Nucleated RBC % (auto) 0.0 Smear Tech's Comments PT 31.1 H INR 2.6 H Hold Blue Top Sodium 145 Potassium 4.0 Chloride 108 Carbon Dioxide 25 Anion Gap 16 BUN 42 H Creatinine 1.53 H Estim Creat Clear Calc 30.9 Estimated GFR 44 Random Glucose 72 Calcium 7.9 L Total Bilirubin GGT AST ALT Alkaline Phosphatase Troponin I High Sens B-Natriuretic Peptide Total Protein Albumin Urine Color Urine Appearance Urine pH Ur Specific [place] Urine Protein Urine Glucose (UA) Urine Ketones Urine Blood Urine Nitrite Ur Leukocyte Esterase Urine RBC Urine WBC Ur Squamous Epith Cells Amorphous Sediment Urine Bacteria Coronavirus (PCR) EKG shows atrial fibrillation with nonspecific T-wave changes Chest x-ray shows no evidence of overt congestive heart failure Assessment and Plan (1) Congestive heart failure: Qualifiers: Heart failure chronicity: acute Heart failure type: systolic Qualified Code(s): I50.21 - Acute systolic (congestive) heart failure Status: Acute Acute decompensated congestive heart failure in a patient with ischemic cardiomyopathy and chronic atrial fibrillation. Clinically appears much more euvolemic today. No significant leg edema and no evidence of central venous congestion on today's exam. Has diuresed well with current Lasix dose. Would switch him to Lasix 40 mg IV once a day today. Eventually tomorrow switch to Lasix 40 mg daily. There has been concern in the past as an outpatient due to his orthostatic hypertension are related to his autonomic dysfunction related to Parkinson's disease about diuresis. However this needs to be pursued given his current hospitalization. This will need to be closely monitored at home. CHF education to be provided to the . Daily weight monitoring and avoidance of salt loading was discussed. Currently not an alternative neurohormonal modulation due to chronic kidney disease as well as a KI currently which is most likely due to cardiorenal syndrome and hypertension. Avoid RAAS agents. Continue metoprolol therapy. If blood pressure becomes an issue consider adding low-dose midodrine therapy. Prognosis is overall guarded given his multiple comorbidities. Anticipate discharge tomorrow. Continue to follow strict intake and output chart. Also follow BNP and BMP tomorrow. Will sign of the case today. Case was discussed with Dr. Knott in details (2) Ischemic cardiomyopathy: Status: Acute See above. Cannot add additional neurohormonal modulation given his multiple comorbidities especially orthostatic hypertension and [place] I. Continue metoprolol therapy for now. If blood pressure becomes an issue, consider adding midodrine therapy. (3) A-fib: Problem details: Chronic on chronic anticoagulation Status: Acute This is chronic. Significant left atrial enlargement noted. Currently on oral anticoagulation with warfarin which is being held due to supratherapeutic INR. Resume warfarin once INR in the therapeutic range. Continue rate control with metoprolol at this time. (4) Renal failure, acute: Qualifiers: Acute renal failure type: with acute tubular necrosis Qualified Code(s): N17.0 - Acute kidney failure with tubular necrosis Status: Acute Being followed by hospitalist team. Creatinine is improved with diuresis. Continue to follow creatinine level tomorrow.
[2020-03-05 12:09] LABS: Prostate Specific Antigen 335.37 ng/mL (<0.05-4.0)
--- NOTE | 2020-03-05 12:56 | PM.HEMONCCN ---
Subjective - Subjective Chief complaint: consult for: Sclerotic mets. Patient: new to practice Requesting Physician: porter rodriguez Primary Care Provider: Marky Contreras MD, DO Medical Summary: DIAGNOSIS: SCLEROTIC METS. HPI - Consult Narrative Narrative: Lakhwinder Green is a pleasant 84 year old gentleman, with a history of hypertension, AFib on warfarin, Parkinson's disease and vascular dementia. He presented 03/04 with bilateral lower extremity edema, left more than right. The also noted shortness of breath especially upon exertion over the past few weeks. He denied chest pain cough sputum fever nor chills. No abdominal pain nausea vomiting heartburn indigestion. No urinary complaints. Lab data: BUN 45, MAMMOGRAPHY TECHNOLOGIST 2.02, AP 05/14/2004, BNP 9 7 7, tropes 39.5. CT scan of the abdomen: Diffuse sclerotic metastatic disease throughout the visualized bony structures. He does not have any known malignancy that we know of. Review of Systems - Constitutional Reports body ache(s), Reports fatigue, Reports lack of energy, Reports malaise, Reports night sweats - Eyes Denies blurry vision - ENT Reports system reviewed and no additional complaints, except as documented, Reports hearing loss - Cardiovascular Denies chest pain at rest - Respiratory Denies chest congestion - Gastrointestinal Reports abdominal pain, Reports change in bowel habits - Genitourinary Genitourinary: Reports difficulty urinating - Neurologic Reports system reviewed and no additional complaints, except as documented, Reports abnormal movements - Psychiatric Reports abnormal sleep pattern, Reports anxiety - Endocrine Denies increased hunger PMFSH Medical History: Medical History (Last Reviewed 03/05/20 @ 11:00 by Enoc Thomas MD) A-fib Bladder stone CHF (congestive heart failure) CVA (cerebral vascular accident) Dementia High cholesterol [place] (hard of hearing) Ischemic cardiomyopathy Orthostatic hypotension Parkinsons Patient : No Smoking status: Never smoker Home Medications and Allergies Current Medications: Current Medications Generic Name Dose Route Start Last Admin Trade Name Freq PRN Reason Stop Dose Admin Acetaminophen 650 mg 03/04/20 23:40 Acetaminophen 325 Mg Tablet PO Q6H PRN Pain, Mild (Pain Scale 1-3) Atorvastatin Calcium 40 mg 03/05/20 09:00 03/05/20 10:05 Atorvastatin Calcium 40 Mg Tablet PO 40 mg DAILY PALOMO Administration Carbidopa/Levodopa 1 tab 03/04/20 23:40 03/05/20 10:05 Carbidopa/Levodopa 25/100 Tablet PO 1 tab TID PALOMO Administration Docusate Sodium 100 mg 03/04/20 23:40 Docusate Sodium 100 Mg Capsule PO DAILY PRN Constipation Donepezil HCl 10 mg 03/04/20 23:40 03/05/20 01:08 Donepezil Hcl 10 Mg Tablet PO 10 mg BEDTIME PALOMO Administration Furosemide 40 mg 03/05/20 09:00 03/05/20 10:05 Furosemide 40 Mg/4 Ml Vial IVPUSH 40 mg BID@0900,1800 [facility] Administration Protocol Metoprolol Tartrate 25 mg 03/04/20 23:40 03/05/20 10:05 Metoprolol Tartrate 25 Mg Tablet PO 25 mg BID PALOMO Administration Protocol Ondansetron HCl 4 mg 03/04/20 23:40 Ondansetron Hcl 4 Mg/2 Ml Vial IVPUSH Q8H PRN Nausea and Vomiting Pharmacy Consult 1 each 03/04/20 19:45 Consult Rx Perform Med Rec MISCELLANE ONCE PRN Consult order Sodium Chloride 3 ml 03/05/20 00:00 03/05/20 10:06 0.9 % Sodium Chloride Flush 3 Ml Syringe IVFLUSH 3 ml QSHIFT [facility] Administration Home Medications Medication Instructions Recorded Confirmed Type atorvastatin 40 mg PO DAILY 03/04/20 03/17/20 History carbidopa-levodopa 1 tab PO TID 03/04/20 03/17/20 History donepezil 10 mg PO BEDTIME 03/04/20 03/17/20 History metoprolol tartrate 25 mg PO BID 03/04/20 03/17/20 History warfarin 2.5 mg PO SUTUTHSA@1600 03/04/20 03/17/20 History warfarin 5 mg PO MOWEFR@1600 03/04/20 03/17/20 History Allergies Allergy/AdvReac Type Severity Reaction Status Date / Time Penicillins Allergy Unknown SKIN Verified 03/05/20 16:23 EXCORIATION HANDS Physical Exam Vital signs: Vital Signs Temp 97.8 F 03/05/20 10:49 Pulse 76 03/05/20 10:49 Resp 18 03/05/20 10:49 BP 91/60 03/05/20 10:49 Pulse Ox 100 03/05/20 10:49 Intake & Output 1003/05/20 03/05/20 18:59 06:59 18:59 Intake Total 300 / 300 440 / 440 Output Total 1400 / 1400 600 / 600 Balance -1100 / -1100 -160 / -160 Urine Output (Average ml/kg/hr) 1.92 0.82 Intake: Intake, Oral Amount 300 / 300 440 / 440 Output: Output, Urine Amount (Catheter) 1400 / 1400 600 / 600 Urethral 1400 / 1400 600 / 600 Other: Breakfast % Eaten 75% Lunch % Eaten 100% Number of Bowel Movements 1 Urine Color Bloody Bloody Last Bowel Movement 03/05/20 Stool Bedside Commode Stool Color Brown Stool Consistency Loose Weight 61.689 kg 60.9 kg 60.9 kg Weight 60.9 kg - Constitutional Present: no acute distress - Routine HEENT Exam Head: Present: normal inspection ENT: Present: mucous membranes moist - Routine Neck Exam Present: supple - Routine Respiratory Exam Present: CTAB - Routine Cardiovascular Exam Cardiovascular: Present: RRR, S1, S2, irregularly irregular - Routine Abdominal Exam Present: soft, nontender - Routine Rectal Exam Patient deferred: digital exam - Routine Extremities Exam Present: pedal edema, nontender - Routine Skin Exam Present: intact - Routine Neurological Exam Present: alert, altered mental status - Detailed Neurological Exam: Coma Scale Eye Opening: Spontaneous (4) Verbal Response: Oriented (5) Motor Response: Obeys commands (6) Blair Coma Scale Total: 15 Hem/Onc Consult Result - Labs CBC & Chem 7: 03/09/20 04:06 03/08/20 05:51 Labs: Short CBC 03/04/20 03/05/20 Range/Units 17:22 05:19 WBC 5.1 4.3 L (4.8-10.8) X10*3/uL Hgb 12.0 L 11.4 L (14.0-18.0) g/dl Hct 36.5 L 35.9 L (42-52) % Plt Count 130 L 121 L (160-400) X10*3/uL BMP 03/04/20 03/05/20 17:22 05:19 Sodium 143 145 Potassium 4.4 4.0 Chloride 107 108 Carbon Dioxide 24 25 BUN 45 H 42 H Creatinine 2.02 H 1.53 H Calcium 8.0 L 7.9 L Liver Function 03/04/20 03/04/20 Range/Units 17:22 20:41 Total Bilirubin 1.0 (0.0-1.0) mg/dL GGT 15 (11-51) U/L AST 22 (5-37) U/L ALT < 6 (0-40) U/L Alkaline Phosphatase 1705 H (39-117) U/L Albumin 3.8 (3.5-5.0) g/dL Urine 03/05/20 Range/Units 00:10 Urine Color DICKSON Urine Appearance HAZY Urine pH 5.5 (5.0-8.0) Ur Specific [place] 1.015 (1.005-1.025) Urine Protein TRACE (NEG-TRACE) MG/DL Urine Glucose (UA) NEG (NEG) MG/DL Assessment and Plan (1) Bone metastases Problem details: 03/06/2020 bone scan positive generalized spinal metastases Status: Acute (2) Metastasis to bone of unknown primary Status: Deleted This is a pleasant 84-year-old gentleman with a previous history of hypertension, atrial fibrillation on warfarin, Parkinson's disease and vascular dementia. He presented with CHF. He has incidentally been noted to have diffuse sclerotic metastatic disease seen throughout the visualized bony structures. Previous CT scan had been normal. Bladder is a relatively distended with fullness to both renal pelves. Chronic bladder outlet obstruction. Reviewing the overall picture, most likely he has metastatic prostate cancer with bone Mets, especially given the sclerotic picture and the finding of bladder distension. PLAN: Will proceed with a bone scan. Will check tumor markers including PSA, CEA and CA 19-9. If an once prostate cancer is diagnosed, will proceed with total androgen blockade with Casodex and abiraterone. He has been started on finasteride. He had a Sanders placed by Urology. thank you, cc: Dr. Layton Conway. Dr. Contreras. Addendum: PSA elevated at 335. CEA 3.6. CA 19-9: 13. Bone scan: Widespread metastatic tumor involvement of bone with most severe involvement in the spine and thoracic cage abnormalities also present in proximal upper and lower extremities.
--- NOTE | 2020-03-05 14:39 | HO.PM.IMPN ---
Subjective Subjective Date of Service: 03/05/20 Interval History: patient feels better denies shortness of breath or chest pain feels leg swelling is better at bedside also agrees that swelling has improved but patient complained of persistent redness left lower extremity failure Review of Systems General no headache no dizziness no fever chills. CVS no chest pain, no palpitation. Respiratory no cough,no respiratory distress. Gastrointestinal no nausea, no abdominal pain Physical Exam Vital Signs: Vital Signs: Vital Signs Temp Pulse Resp BP Pulse Ox 03/05/20 10:49 97.8 F 76 18 91/60 100 03/05/20 07:06 97.7 F 74 16 104/62 100 03/05/20 03:18 97.5 F 74 16 103/70 94 03/05/20 01:07 83 112/66 03/05/20 00:00 98.0 F 83 16 112/66 98 03/04/20 22:00 98.0 F 95 16 115/73 95 03/04/20 19:22 98.7 F 104 H 18 115/73 95 03/04/20 16:36 97.7 F 102 H 12 99/72 95 03/04/20 16:18 97.6 F 87 16 99/66 95 Body Mass Index 20.4 General patient resting in chair, no acute distress. Neck is supple no JVD. CVS regular rate rhythm, Respiratory lungs clear to auscultation, no respiratory distress Gastrointestinal abdomen soft, nontender, bowel sounds audible. Extremities mild swelling left lower extremity with hyperemia and tenderness on palpation Neuro nonfocal Skin no rash Objective Data Current Medications Generic Name Dose Route Start Last Admin Trade Name Freq PRN Reason Stop Dose Admin Acetaminophen 650 mg 03/04/20 23:40 Acetaminophen 325 Mg Tablet PO Q6H PRN Pain, Mild (Pain Scale 1-3) Atorvastatin Calcium 40 mg 03/05/20 09:00 03/05/20 10:05 Atorvastatin Calcium 40 Mg Tablet PO 40 mg DAILY [facility]OMO Administration Carbidopa/Levodopa 1 tab 03/04/20 23:40 03/05/20 10:05 Carbidopa/Levodopa 25/100 Tablet PO 1 tab TID PALOMO Administration Docusate Sodium 100 mg 03/04/20 23:40 Docusate Sodium 100 Mg Capsule PO DAILY PRN Constipation Donepezil HCl 10 mg 03/04/20 23:40 03/05/20 01:08 Donepezil Hcl 10 Mg Tablet PO 10 mg BEDTIME [facility]O Administration Furosemide 40 mg 03/06/20 09:00 Furosemide 40 Mg Tablet PO DAILY [facility] Protocol Hydroxyzine HCl 10 mg 03/05/20 14:35 Hydroxyzine Hcl 10 Mg Tablet PO Q6H PRN Anxiety Metoprolol Tartrate 25 mg 03/04/20 23:40 03/05/20 10:05 Metoprolol Tartrate 25 Mg Tablet PO 25 mg BID PALOMO Administration Protocol Ondansetron HCl 4 mg 03/04/20 23:40 Ondansetron Hcl 4 Mg/2 Ml Vial IVPUSH Q8H PRN Nausea and Vomiting Pharmacy Consult 1 each 03/04/20 19:45 Consult Rx Perform Med Rec MISCELLANE ONCE PRN Consult order Sodium Chloride 3 ml 03/05/20 00:00 03/05/20 10:06 0.9 % Sodium Chloride Flush 3 Ml Syringe IVFLUSH 3 ml QSHIFT PALOMO Administration Labs CBC & Chem 7: 03/05/20 05:19 03/05/20 05:19 Assessment and Plan (1) Renal failure, acute: Status: Acute (2) Congestive heart failure: Status: Acute (3) Metastasis to bone of unknown primary: Status: Acute (4) Hematuria: Status: Acute (5) A-fib: Problem details: Chronic on chronic anticoagulation Status: Acute (6) Parkinsons: Status: Acute (7) Orthostatic hypotension: Status: Acute Assessment and Plan: acute on chronic systolic congestive heart failure exacerbation patient responded well to IV Lasix, shortness of breath and leg edema has improved, clinically does not appear to have significant hypervolemia therefore will change dose of iv Lasix to daily and place patient on Lasix 40 mg by mouth daily case discussed with Dr. Topete will dc echocardiogram since it was recently obtained at [facility] on chronic kidney disease gradually improving likely due to renal hypoperfusion, continue to follow BMP sclerotic metastatic disease incidental finding on CT scan of abdomen likely patient has prostate CA due to elevated alk-phos , distended bladder and fullness of both renal pelvises , PSA has been added, patient being evaluated by Dr. Jones from Oncology atrial fibrillation continue metoprolol for rate control hold for warfarin due to hematuria, INR 2.6 follow INR and resume Coumadin once hematuria improved Parkinson's disease continue home medication Cellulitis left lower extremity since patient has penicillin allergy will place patient on doxycycline b.i.d. patient is afebrile with a normal WBC count hematuria likely due to elevated INR and possibly traumatic insertion with enlarged prostate,frederick cbc and inr. DVT prophylaxis
[2020-03-05] MEDS: hydrOXYzine HCL 10 MG TABLET PO ×2 (14:46→21:21)
--- NOTE | 2020-03-05 14:47 | MHC.PIE ---
P: Anxious, confused about where he is - wanting to go downstairs . Not able to be redirected. Walking away without frederick. I: Attempted to ambulate w/ patient, redirect, diversional activities - Dr Knott made aware of anxiety - ordered atarax PRN 10mg PO - given to help patient participate w/ care. came to bedside. High fall risk maintained. E: Patient sitting with at bedside at this time.
--- NOTE | 2020-03-05 15:42 | PC.NURSE ---
Patient becoming more restless. Trying to get oob and chair and clean and get dressed. Becoming more unsafe. Nurses aide sitting with patient for safety. in to sit with patient. Medicated with atarax x1 for restlessness. Patient currently reclining in chair. Lights dimmed. Encouraged patient to rest. at bedside. Telesitter monitoring patient and chair alarm on.
--- NOTE | 2020-03-05 16:35 | PC.NURSE ---
Pt sleeping at this time. at bedside. Bed alarm set for pt safety, telesitter in room.
[2020-03-06] MEDS: 0.9 % Sodium Chloride Flush 3 ML SYRINGE IVFLUSH ×3 (00:02→16:27)
[2020-03-06 03:28] VITALS: BP 91/52; PULSE 94; RESP 18; TEMP 36.4; O2SAT 94
[2020-03-06] MEDS: Acetaminophen 325 MG TABLET 650 MG PO (05:35)
[2020-03-06 06:00] VITALS: BMI 19.6
[2020-03-06 06:17] LABS: MANUAL DIFF FLAG NO
[2020-03-06 06:37] LABS: Basophils Percent Auto 0.4 % (0-2); Eosinophils Percent Auto 0.9 % (0-4); Hematocrit 34.6 % (42-52); Hemoglobin 11.1 g/dl (14.0-18.0); Imm Gran Abs Auto 0.19 X10*3/uL (0.00-0.03); Imm Gran Pct Auto 4.2 % (0.0-0.4); Lymphocytes Absolute Auto 0.8 X10*3/uL (1.2-4.9); Lymphocytes Percent Auto 17.3 % (20-40); Mean Corpuscular HGB Conc 32.1 g/dl (31.0-36.0); Mean Corpuscular Hemoglobin 31.4 pg (27.0-33.0); Mean Corpuscular Volume 97.7 fL (80-98); Mean Platelet Volume 11.3 fL (9.4-12.4); Monocytes Absolute Auto 0.4 X10*3/uL (0.1-1.2); NRBC Pct Auto 0.4 /100WBC (0.0-0.2); Neutrophils Absolute Auto 3.1 X10*3/uL (2.0-8.3); Neutrophils Percent Auto 68.2 % (45-73); Platelet Count 142 X10*3/uL (160-400); Red Blood Count 3.54 X10*6/uL (4.60-5.80); Red Cell Distribution Width 14.6 % (11.0-16.0); White Blood Count 4.6 X10*3/uL (4.8-10.8)
[2020-03-06 06:43] LABS: INTERNATIONAL NORM RATIO 1.9 (0.9-1.1); Prothrombin Time 22.8 SEC (10.8-13.0)
[2020-03-06 06:54] LABS: Anion Gap 13 (12-20); Blood Urea Nitrogen 39 mg/dL (9-16); Calcium 7.6 mg/dL (8.4-10.2); Carbon Dioxide 26 mmol/L (22-29); Chloride 108 mmol/L (96-108); Creatinine Clr Calc Pharmacy 40.3; Estimated Glomerular Filt Rate > 60; Glucose Random 102 mg/dL (60-115); Potassium 3.8 mmol/l (3.3-5.1); Sodium 143 mmol/L (135-145)
[2020-03-06 07:38] VITALS: BP 93/59; PULSE 91; RESP 18; TEMP 36.4; O2SAT 95
[2020-03-06 08:00] VITALS: BP 93/59; PULSE 91; RESP 18; TEMP 36.4; O2SAT 95
[2020-03-06] MEDS: Atorvastatin Calcium 40 MG TABLET PO (09:22)
[2020-03-06] MEDS: Carbidopa/Levodopa 25/100 TABLET 1 TAB PO ×3 (09:22→21:39)
[2020-03-06] MEDS: Furosemide 40 MG TABLET PO (10:01)
[2020-03-06] MEDS: Metoprolol Tartrate 25 MG TABLET PO (10:02)
--- NOTE | 2020-03-06 11:00 | NM_ITS ---
EXAMINATION: NM BONE SCAN OF THE WHOLE BODY CLINICAL INFORMATION: Sclerotic bony metastasis on CT scan. COMPARISON: No previous bone scan is available for comparison. Radiographs of the chest dated 03/04/2020 is available for comparison. The diagnostic CT scan of the abdomen and pelvis, dated 03/04/2020, is available for comparison. TECHNIQUE: Multiple gamma scintillation camera images of the whole body were performed 3.25 hours following the intravenous administration of 22.1 mCi Tc-99m MDP. FINDINGS: In the head, minimal heterogeneity is present. Intensity of activity in the calvarium is much less than the remainder of the axial skeleton. In the thoracic cage and upper extremities, there is markedly increased contrast between the bones and soft tissues with minimal heterogeneity present. In both humeri the contrast between the bones and soft tissues is less prominent than in the chest, but both humeri show foci of moderately increased activity in the mid shafts. There is also heterogeneity in the sternum, In the spine, a moderate thoracolumbar scoliosis is present with upper lumbar convexity to the right. There is marked increased contrast between the spine and adjacent soft tissues. There is mild heterogeneity but a dominant focus of more prominently increased activity is not present. In the pelvis, there is fairly homogeneously increased contrast between the pelvic bones and the soft tissues. Minimal heterogeneity is present in the posterior pelvis. In the lower extremities, there is some increased contrast between the bones and soft tissues in the proximal third of both femurs but this gradually tapers. No discrete focus of more prominently increased activity is present in either lower extremity.. No other definite bony abnormalities are noted. The either kidney nor urinary bladder is well-visualized. However, this patient had a Sanders catheter in place during the study and faint visualization of urinary activity in the catheter is present. The contemporaneous CT scan of the abdomen and pelvis shows diffuse sclerotic metastasis throughout the visualized bones. NM/NM bone scan whole body IMPRESSION: Widespread metastatic tumor involvement of bone with the most severe involvement in the spine and thoracic cage was abnormalities also present in the proximal upper and lower extremities.
--- NOTE | 2020-03-06 11:15 | MHC.CM.PN ---
Patient lives with his and family assists Patient PRN. The goal for dc continues to be home no services. Patient appears to have some hematuria. CM will continue to follow for dc planning and for possible need to adjust dc plan.
[2020-03-06 11:28] VITALS: BP 91/56; PULSE 83; RESP 18; TEMP 36.4; O2SAT 95
--- NOTE | 2020-03-06 15:06 | P.PNIM_ITS ---
Subjective Subjective Date of Service: 03/06/20 Interval History: patient noticed to be confuse since yesterday, is at bedside feels this is his baseline, patient denies any symptoms of shortness of breath, does not appear to be in any distress , Sanders catheter with persistent hematuria. Review of system unable to obtain due to confusion/ underlying dementia. Physical Exam Vital Signs: Vital Signs: Vital Signs Temp Pulse Resp BP Pulse Ox 03/06/20 11:28 97.6 F 83 18 91/56 L 95 03/06/20 08:00 97.5 F 91 18 93/59 L 95 03/06/20 07:38 97.5 F 91 18 93/59 L 95 03/06/20 03:28 97.5 F 94 18 91/52 L 94 03/05/20 23:19 98 F 84 18 110/71 97 03/05/20 21:20 87 106/64 03/05/20 19:36 98.2 F 87 17 103/62 94 03/05/20 15:20 98 F 68 14 92/67 92 Body Mass Index 19.6 General patient resting in chair, no acute distress. Neck is supple no JVD. CVS regular rate rhythm, Respiratory lungs clear to auscultation, no respiratory distress Gastrointestinal abdomen soft, nontender, bowel sounds audible. Extremities swelling left lower extremity with hyperemia and tenderness on palpation Unchanged from yesterday Neuro nonfocal Skin no rash Sanders catheter with hematuria Objective Data Current Medications Generic Name Dose Route Start Last Admin Trade Name Freq PRN Reason Stop Dose Admin Acetaminophen 650 mg 03/04/20 23:40 03/06/20 05:35 Acetaminophen 325 Mg Tablet PO 650 mg Q6H PRN Administration Pain, Mild (Pain Scale 1-3) Atorvastatin Calcium 40 mg 03/05/20 09:00 03/06/20 09:22 Atorvastatin Calcium 40 Mg Tablet PO 40 mg DAILY PALOMO Administration Bicalutamide 50 mg 03/07/20 09:00 Bicalutamide 50 Mg Tablet PO DAILY PALOMO Carbidopa/Levodopa 1 tab 03/04/20 23:40 03/06/20 13:37 Carbidopa/Levodopa 25/100 Tablet PO 1 tab TID PALOMO Administration Docusate Sodium 100 mg 03/04/20 23:40 Docusate Sodium 100 Mg Capsule PO DAILY PRN Constipation Donepezil HCl 10 mg 03/04/20 23:40 03/05/20 21:21 Donepezil Hcl 10 Mg Tablet PO 10 mg BEDTIME PALOMO Administration Doxycycline Hyclate 100 mg 03/05/20 15:00 03/06/20 13:37 Doxycycline Hyclate 100 Mg Tablet PO 100 mg Q12H PALOMO Administration Finasteride 5 mg 03/07/20 09:00 Finasteride 5 Mg Tablet PO DAILY PALOMO Furosemide 40 mg 03/06/20 09:00 03/06/20 10:01 Furosemide 40 Mg Tablet PO 40 mg DAILY PALOMO Administration Protocol Hydroxyzine HCl 10 mg 03/05/20 14:35 03/05/20 21:21 Hydroxyzine Hcl 10 Mg Tablet PO 10 mg Q6H PRN Administration Anxiety Metoprolol Tartrate 25 mg 03/04/20 23:40 03/06/20 10:02 Metoprolol Tartrate 25 Mg Tablet PO 25 mg BID PALOMO Administration Protocol Ondansetron HCl 4 mg 03/04/20 23:40 Ondansetron Hcl 4 Mg/2 Ml Vial IVPUSH Q8H PRN Nausea and Vomiting Pharmacy Consult 1 each 03/04/20 19:45 Consult Rx Perform Med Rec MISCELLANE ONCE PRN Consult order Sodium Chloride 3 ml 03/05/20 00:00 03/06/20 09:23 0.9 % Sodium Chloride Flush 3 Ml Syringe IVFLUSH 3 ml QSHIFT [facility] Administration Labs CBC & Chem 7: 03/06/20 05:21 03/06/20 05:21 Assessment and Plan (1) Renal failure, acute: Status: Acute (2) Congestive heart failure: Status: Acute (3) Metastasis to bone of unknown primary: Status: Acute (4) Hematuria: Status: Acute (5) A-fib: Problem details: Chronic on chronic anticoagulation Status: Acute (6) Parkinsons: Status: Acute (7) Orthostatic hypotension: Status: Acute Assessment and Plan: acute on chronic systolic congestive heart failure exacerbation patient clinically has significantly improved with no further shortness of breath leg edema has improved except for left lower extremity edema and redness due to cellulitis will continue Lasix 40 mg by mouth daily, follow BMP patient has borderline low blood pressure will continue to follow, if any further drop in blood pressure or patient becomes symptomatic will place him on low-dose mitral acute on chronic kidney disease stage III kidney function returned to baseline sclerotic metastatic disease incidental finding on CT scan of abdomen elevated PSA 335 , CA 19 9 antigen pending, CEA 3.6 likely has prostate CA with elevated alk-phos, patient seen by Dr. Conway from Urology and placed on Casodex and Proscar patient being followed by Dr. Jones from Oncology atrial fibrillation continue metoprolol for rate control hold for warfarin due to hematuria, INR 1.9 follow INR and resume Coumadin once hematuria improved Parkinson's disease continue home medication Cellulitis left lower extremity since patient has penicillin allergy placed on doxycycline b.i.d. day 2 patient is afebrile with a normal WBC count hematuria patient seen by Urology likely related to bladder wall inflammation with placement of Sanders and elevated INR follow cbc no AC. DVT prophylaxis inr 1.9
[2020-03-06 15:57] VITALS: BP 90/52; PULSE 87; RESP 16; TEMP 36.9; O2SAT 97
--- NOTE | 2020-03-06 16:40 | P.CNUR_ITS ---
History of Present Illness Consult details Narrative: 84 yr old male Admit for cachexia CT with scerotic lesions in spine - metastatic cancer unknown primary PSA reviewed 335 - likely prostate cancer metastatic to bone Start finasteride, bicalutamide - plan for biopsy in 2-3 weeks Review of Systems Neurologic: Reports system reviewed and no additional complaints, except as documented [facility] Past Medical History Medical History A-fib CHF (congestive heart failure) CVA (cerebral vascular accident) Dementia High cholesterol [place] (hard of hearing) Ischemic cardiomyopathy Orthostatic hypotension Parkinsons Social History Social History Household Members: Spouse Housing: Unknown / Unable to assess Alcohol intake: never Smoking Status: Never smoker Smoked in Last 30 Days: No Second Hand Smoke Exposure: No Use of substances other than those prescribed or required for medical reasons: No Currently Displaying Signs/Symptoms of Drug Intoxication Withdrawal: No Advance Directives: No Advance Directives Information Provided: No Do you have thoughts of harming others: None Do you have a plan to hurt others: No Plan Recently lost weight without trying: Unsure service: Yes Current occupational status: retired Meds Allergies Allergy/AdvReac Type Severity Reaction Status Date / Time Penicillins Allergy Unknown SKIN Verified 03/05/20 16:23 EXCORIATION HANDS Home Medications Medication Instructions Recorded Confirmed Type atorvastatin 40 mg PO DAILY 03/04/20 03/04/20 History carbidopa-levodopa 1 tab PO TID 03/04/20 03/04/20 History donepezil 10 mg PO BEDTIME 03/04/20 03/04/20 History furosemide 20 mg PO DAILY 03/04/20 03/04/20 History metoprolol tartrate 25 mg PO BID 03/04/20 03/04/20 History warfarin 2.5 mg PO SUTUTHSA@1600 03/04/20 03/04/20 History warfarin 5 mg PO MOWEFR@1600 03/04/20 03/04/20 History Physical Exam Vital Signs: Vital Signs: Vital Signs Temp Pulse Resp BP Pulse Ox 03/06/20 15:57 98.5 F 87 16 90/52 L 97 03/06/20 11:28 97.6 F 83 18 91/56 L 95 03/06/20 08:00 97.5 F 91 18 93/59 L 95 03/06/20 07:38 97.5 F 91 18 93/59 L 95 03/06/20 03:28 97.5 F 94 18 91/52 L 94 03/05/20 23:19 98 F 84 18 110/71 97 03/05/20 21:20 87 106/64 03/05/20 19:36 98.2 F 87 17 103/62 94 Body Mass Index 19.6 Const: General: cooperative, healthy appearing, comfortable and no acute distress Orientation/consciousness: patient oriented x3 HENMT: Face and sinus: Yes normal facial exam Mouth: moist mucous membranes Neck: Neck: Yes normal visual inspection, Yes full ROM and Yes trachea midline Chest: Chest palpation & inspection: normal inspection of the chest Resp: Effort & Inspection: normal respiratory effort, able to speak in complete sentences and no respiratory distress GI: Inspection: Yes normal to inspection Back/Spine/Pelvis: Cervical Spine: normal cervical lordosis Thoracic/Lumbar Spine: thoracic and lumbar spine normal to inspection Skin: General skin exam: no rashes or lesions noted Neuro: General: patient oriented x3, gait normal, tone normal and moves all extremities Extrem: General: Yes normal to inspection and Yes capillary refill normal Results Labs Result diagrams: 03/06/20 05:21 03/06/20 05:21 Labs: Abnormal lab results 03/06/20 03/06/20 03/06/20 Range/Units 05:21 05:21 05:21 WBC 4.6 L (4.8-10.8) X10*3/uL RBC 3.54 L (4.60-5.80) X10*6/uL Hgb 11.1 L (14.0-18.0) g/dl Hct 34.6 L (42-52) % Plt Count 142 L (160-400) X10*3/uL Immature Gran % (Auto) 4.2 H (0.0-0.4) % Lymph % (Auto) 17.3 L (20-40) % Lymph # (Auto) 0.8 L (1.2-4.9) X10*3/uL Abs Immat Gran (auto) 0.19 H (0.00-0.03) X10*3/uL Absolute Nucleated RBC 0.020 H (0.0-0.012) X10*3/uL Nucleated RBC % (auto) 0.4 H (0.0-0.2) /100WBC PT 22.8 H D (10.8-13.0) SEC INR 1.9 H (0.9-1.1) BUN 39 H (9-16) mg/dL Calcium 7.6 L (8.4-10.2) mg/dL Short CBC 03/06/20 Range/Units 05:21 WBC 4.6 L (4.8-10.8) X10*3/uL Hgb 11.1 L (14.0-18.0) g/dl Hct 34.6 L (42-52) % Plt Count 142 L (160-400) X10*3/uL BMP 03/06/20 05:21 Sodium 143 Potassium 3.8 Chloride 108 Carbon Dioxide 26 BUN 39 H Creatinine 1.13 Calcium 7.6 L Urine 03/05/20 Range/Units 00:10 Urine Color DICKSON Urine Appearance HAZY Urine pH 5.5 (5.0-8.0) Ur Specific [place] 1.015 (1.005-1.025) Urine Protein TRACE (NEG-TRACE) MG/DL Urine Glucose (UA) NEG (NEG) MG/DL All other labs normal. CT - diffuse sclerotic metastatic disease seen throughout the visualized bony structures. This had a more normal appearance on the prior pelvic CT scan. Clinical correlation and correlation with nuclear medicine bone scan may be helpful to define further. There is diffuse cachexia limiting evaluation otherwise. The bladder is relatively distended with the fullness to both renal pelvises. Bladder calculi noted suggesting component of chronic bladder outlet obstruction. Assessment and Plan (1) Prostate cancer: Status: Acute 03/06/20 PSA 335, CT scerotic spine lesions - start finasteride/bicalutamide (2) Bone metastases: Status: Acute (3) Bladder stone: Status: Acute (4) Hydronephrosis concurrent with and due to calculi of kidney and ureter: Status: Acute Sanders Catheter
[2020-03-06 19:28] VITALS: BP 95/65; PULSE 84; RESP 18; TEMP 36.6; O2SAT 96
[2020-03-06] MEDS: Donepezil HCl 10 MG TABLET PO (21:39)
[2020-03-07] VITALS (7 sets, daily range): BP systolic 92–112; BP diastolic 59–75; PULSE 79–114; RESP 16–20; TEMP 36.3–37; O2SAT 94–99
[2020-03-07] MEDS: 0.9 % Sodium Chloride Flush 3 ML SYRINGE IVFLUSH ×4 (00:55→20:31)
[2020-03-07 07:37] LABS: Hematocrit 33.2 % (42-52); Hemoglobin 10.8 g/dl (14.0-18.0); Mean Corpuscular HGB Conc 32.5 g/dl (31.0-36.0); Mean Corpuscular Hemoglobin 31.5 pg (27.0-33.0); Mean Corpuscular Volume 96.8 fL (80-98); Mean Platelet Volume 11.2 fL (9.4-12.4); Platelet Count 133 X10*3/uL (160-400); Red Blood Count 3.43 X10*6/uL (4.60-5.80); Red Cell Distribution Width 14.5 % (11.0-16.0); White Blood Count 4.5 X10*3/uL (4.8-10.8)
[2020-03-07 07:43] LABS: INTERNATIONAL NORM RATIO 1.5 (0.9-1.1); Prothrombin Time 17.4 SEC (10.8-13.0)
[2020-03-07] MEDS: Carbidopa/Levodopa 25/100 TABLET 1 TAB PO ×3 (07:59→20:31)
[2020-03-07] MEDS: Metoprolol Tartrate 25 MG TABLET PO (08:00)
[2020-03-07] MEDS: Atorvastatin Calcium 40 MG TABLET PO (08:00)
[2020-03-07] MEDS: Furosemide 40 MG TABLET PO (08:00)
[2020-03-07] MEDS: Bicalutamide 50 MG TABLET PO (08:01)
[2020-03-07] MEDS: Finasteride 5 MG TABLET PO (08:01)
[2020-03-07 08:02] LABS: Anion Gap 13 (12-20); Blood Urea Nitrogen 35 mg/dL (9-16); Calcium 7.8 mg/dL (8.4-10.2); Carbon Dioxide 25 mmol/L (22-29); Chloride 108 mmol/L (96-108); Creatinine Clr Calc Pharmacy 54.9; Estimated Glomerular Filt Rate > 60; Glucose Random 81 mg/dL (60-115); Potassium 3.9 mmol/l (3.3-5.1); Sodium 142 mmol/L (135-145)
[2020-03-07 08:26] LABS: Acanthocytes 1+; Band Neutrophils Percent 0 % (3-5); Basophils Abs Manual 0.1 X10*3/uL (0.0-0.3); Basophils Percent Manual 2 % (0-1); Eosinophils Percent Manual 1 % (0-4); Lymphocytes Absolute Manual 0.9 X10*3/uL (0.6-4.8); Lymphocytes Percent Manual 21 % (20-40); Monocytes Absolute Manual 0.3 X10*3/uL (0.0-1.2); Monocytes Percent Manual 7 % (2-11); Myelocytes Percent 1 %; Neutrophils Absolute Manual 3.1 X10*3/uL (2.2-7.9); Neutrophils Percent Manual 68 % (45-73); RBC Morphology NOTED
[2020-03-07 08:27] LABS: Large Platelet PRESENT; Ovalocytes 1+; Platelet Estimate DECREASED (NORMAL); Platelet Morphology Comment NORM; Toxic Vacuolation PRESENT
--- NOTE | 2020-03-07 12:48 | P.PNIM_ITS ---
Subjective Subjective Date of Service: 03/07/20 Interval History: patient pleasantly confused, is at bedside feels this is his baseline, patient denies any symptoms of shortness of breath, does not appear to be in any distress , Sanders catheter with persistent hematuria but less red. Review of system unable to obtain due to confusion/ underlying dementia. Physical Exam Vital Signs: Vital Signs: Vital Signs Temp Pulse Resp BP Pulse Ox 03/07/20 08:00 97.8 F 81 20 104/65 96 03/07/20 03:48 97.9 F 114 H 18 100/68 97 03/07/20 00:00 97.4 F 98 18 112/74 99 03/06/20 19:28 97.9 F 84 18 95/65 96 03/06/20 15:57 98.5 F 87 16 90/52 L 97 Body Mass Index 19.6 General patient resting in chair, no acute distress. Neck is supple no JVD. CVS regular rate rhythm, Respiratory lungs clear to auscultation, no respiratory distress Gastrointestinal abdomen soft, nontender, bowel sounds audible. Extremities swelling left lower extremity with hyperemia, less tenderness on palpation Neuro nonfocal , baseline confusion Skin no rash Sanders catheter with hematuria Objective Data Current Medications Generic Name Dose Route Start Last Admin Trade Name Freq PRN Reason Stop Dose Admin Acetaminophen 650 mg 03/04/20 23:40 03/06/20 05:35 Acetaminophen 325 Mg Tablet PO 650 mg Q6H PRN Administration Pain, Mild (Pain Scale 1-3) Atorvastatin Calcium 40 mg 03/05/20 09:00 03/07/20 08:00 Atorvastatin Calcium 40 Mg Tablet PO 40 mg DAILY PALOMO Administration Bicalutamide 50 mg 03/07/20 09:00 03/07/20 08:01 Bicalutamide 50 Mg Tablet PO 50 mg DAILY [facility] Administration Carbidopa/Levodopa 1 tab 03/04/20 23:40 03/07/20 07:59 Carbidopa/Levodopa 25/100 Tablet PO 1 tab TID PALOMO Administration Docusate Sodium 100 mg 03/04/20 23:40 Docusate Sodium 100 Mg Capsule PO DAILY PRN Constipation Donepezil HCl 10 mg 03/04/20 23:40 03/06/20 21:39 Donepezil Hcl 10 Mg Tablet PO 10 mg BEDTIME [facility] Administration Doxycycline Hyclate 100 mg 03/05/20 15:00 03/07/20 03:50 Doxycycline Hyclate 100 Mg Tablet PO 100 mg Q12H [facility]O Administration Finasteride 5 mg 03/07/20 09:00 03/07/20 08:01 Finasteride 5 Mg Tablet PO 5 mg DAILY [facility]O Administration Furosemide 40 mg 03/06/20 09:00 03/07/20 08:00 Furosemide 40 Mg Tablet PO 40 mg DAILY [facility]O Administration Protocol Hydroxyzine HCl 10 mg 03/05/20 14:35 03/05/20 21:21 Hydroxyzine Hcl 10 Mg Tablet PO 10 mg Q6H PRN Administration Anxiety Metoprolol Tartrate 25 mg 03/04/20 23:40 03/07/20 08:00 Metoprolol Tartrate 25 Mg Tablet PO 25 mg BID PALOMO Administration Protocol Ondansetron HCl 4 mg 03/04/20 23:40 Ondansetron Hcl 4 Mg/2 Ml Vial IVPUSH Q8H PRN Nausea and Vomiting Pharmacy Consult 1 each 03/04/20 19:45 Consult Rx Perform Med Rec MISCELLANE ONCE PRN Consult order Sodium Chloride 3 ml 03/05/20 00:00 03/07/20 08:01 0.9 % Sodium Chloride Flush 3 Ml Syringe IVFLUSH 3 ml QSHIFT [facility] Administration Labs CBC & Chem 7: 03/07/20 06:46 03/07/20 06:46 Assessment and Plan (1) Renal failure, acute: Status: Acute (2) Congestive heart failure: Status: Acute (3) Metastasis to bone of unknown primary: Status: Acute (4) Hematuria: Status: Acute (5) A-fib: Problem details: Chronic on chronic anticoagulation Status: Acute (6) Parkinsons: Status: Acute (7) Orthostatic hypotension: Status: Acute Assessment and Plan: acute on chronic systolic congestive heart failure exacerbation patient clinically has significantly improved with no further shortness of br eath leg edema has improved except for left lower extremity edema and redness due to cellulitis will continue Lasix 40 mg by mouth daily, follow BMP patient has borderline low blood pressure will continue to follow, if any further drop in blood pressure or patient becomes symptomatic will place him on low-dose mitral acute on chronic kidney disease stage III kidney function returned to baseline sclerotic metastatic disease incidental finding on CT scan of abdomen elevated PSA 335 , CA 19 9 antigen pending, CEA 3.6 likely has prostate CA with elevated alk-phos, patient seen by Dr. Conway from Urology and placed on Casodex and Proscar patient being followed by Dr. Jones from Oncology bone scan obtained that showed diffuse bony disease inform patient about report above testing discussed discharge plan patient wishes him to be discharged home since there is a Thanksgiving alliance party planned for him by his daughter will obtain PT eval on Monday atrial fibrillation continue metoprolol noted to have elevated heart rate this a.m. since metoprolol was held last night, hold for warfarin due to hematuria, INR 1.5 follow INR and resume Coumadin once hematuria improved will continue metoprolol patient has chronically low normal blood pressure. Parkinson's disease continue home medication Cellulitis left lower extremity since patient has penicillin allergy placed on doxycycline b.i.d. day 3 patient is afebrile with a normal WBC count hematuria patient seen by Urology likely related to bladder wall inflammation with placement of Sanders and elevated INR follow cbc no AC. hematocrit dropped but stable will continue to follow cbc DVT prophylaxis inr 1.5
[2020-03-07] MEDS: hydrOXYzine HCL 10 MG TABLET PO (16:10)
--- NOTE | 2020-03-07 17:17 | PC.NURSE ---
HOSPITALIST IN TO DISCUSS UPDATES ON PLAN OF CARE WITH AT BEDSIDE. HEMATURIA STILL PRESENT AND SOME BLOODY DRAINAGE ALSO STILL PRESENT AT CATHETER INSERTION SITE. 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 GOOD OUTPUT OF 800 ML. PT AMBULATED WITH WALKER AND 1 ASSIST TO THE BATHROOM MULTIPLE TIMES. FREQUENT CHANGE IN POSITIONS FROM RECLINER TO BED. TELESITTER AT BEDSIDE.
[2020-03-07] MEDS: Donepezil HCl 10 MG TABLET PO (20:31)
[2020-03-08] VITALS (9 sets, daily range): BP systolic 88–109; BP diastolic 52–76; PULSE 80–122; RESP 16–18; TEMP 36.3–36.9; O2SAT 92–98; BMI 19.5
[2020-03-08 07:09] LABS: Hematocrit 36.1 % (42-52); Hemoglobin 11.7 g/dl (14.0-18.0); Mean Corpuscular HGB Conc 32.4 g/dl (31.0-36.0); Mean Corpuscular Hemoglobin 31.7 pg (27.0-33.0); Mean Corpuscular Volume 97.8 fL (80-98); Mean Platelet Volume 11.3 fL (9.4-12.4); Platelet Count 146 X10*3/uL (160-400); Red Blood Count 3.69 X10*6/uL (4.60-5.80); Red Cell Distribution Width 14.5 % (11.0-16.0)
[2020-03-08 07:28] LABS: Anion Gap 12 (12-20); Blood Urea Nitrogen 31 mg/dL (9-16); Calcium 7.7 mg/dL (8.4-10.2); Carbon Dioxide 28 mmol/L (22-29); Chloride 107 mmol/L (96-108); Creatinine Clr Calc Pharmacy 55.1; Estimated Glomerular Filt Rate > 60; Glucose Random 80 mg/dL (60-115); Potassium 4.4 mmol/l (3.3-5.1); Sodium 143 mmol/L (135-145)
[2020-03-08 08:08] LABS: Band Neutrophils Percent 3 % (3-5); Lymphocytes Absolute Manual 0.9 X10*3/uL (0.6-4.8); Lymphocytes Percent Manual 17 % (20-40); Metamyelocytes Absolute 0.1 X10*3/uL; Metamyelocytes Percent 1 %; Monocytes Absolute Manual 0.3 X10*3/uL (0.0-1.2); Monocytes Percent Manual 6 % (2-11); Myelocytes Absolute 0.1 X10*/uL; Myelocytes Percent 1 %; Neutrophils Absolute Manual 3.8 X10*3/uL (2.2-7.9); Neutrophils Percent Manual 72 % (45-73)
[2020-03-08 08:10] LABS: RBC Morphology NOTED
[2020-03-08 08:11] LABS: Platelet Estimate NORMAL (NORMAL); Platelet Morphology Comment NORMAL
[2020-03-08] MEDS: Carbidopa/Levodopa 25/100 TABLET 1 TAB PO ×3 (08:36→21:03)
[2020-03-08] MEDS: Furosemide 40 MG TABLET PO (08:36)
[2020-03-08] MEDS: Finasteride 5 MG TABLET PO (08:36)
[2020-03-08] MEDS: Atorvastatin Calcium 40 MG TABLET PO (08:36)
[2020-03-08] MEDS: Bicalutamide 50 MG TABLET PO (08:36)
[2020-03-08] MEDS: Metoprolol Tartrate 25 MG TABLET PO ×2 (08:36→21:03)
[2020-03-08] MEDS: 0.9 % Sodium Chloride Flush 3 ML SYRINGE IVFLUSH ×2 (08:37→16:37)
--- NOTE | 2020-03-08 15:52 | HO.PM.IMPN ---
Subjective Subjective Date of Service: 03/08/20 Interval History: patient offers no complaints of chest pain shortness of breath noted to have persistent hematuria, hematocrit remains stable, is at bedside patient less confused answering questions appropriately. Review of Systems General no headache , no dizziness, no fever chills. CVS no chest pain, no palpitation. Respiratory no cough, no shortness of breath. Gastrointestinal no nausea no vomiting, no abdominal pain Physical Exam Vital Signs: Vital Signs: Vital Signs Temp Pulse Resp BP Pulse Ox 03/08/20 15:29 98.5 F 108 H 16 94/76 96 03/08/20 11:22 97.5 F 80 16 100/55 L 95 03/08/20 08:36 122 H 109/67 03/08/20 07:22 98 F 122 H 18 109/67 98 03/08/20 03:24 97.8 F 89 18 93/62 92 03/08/20 00:00 97.5 F 80 18 92/60 96 03/07/20 23:32 97.5 F 80 18 92/60 96 03/07/20 19:53 97.5 F 98 18 95/59 L 96 Body Mass Index 19.5 General patient resting in chair, no acute distress. Neck is supple no JVD. CVS regular rate rhythm, Respiratory lungs clear to auscultation, no respiratory distress Gastrointestinal abdomen soft, nontender, bowel sounds audible. Extremities swelling left lower extremity with hyperemia, less tenderness on palpation Neuro nonfocal , baseline confusion, no behavioral issues Skin no rash Sanders catheter with hematuria Objective Data Current Medications Generic Name Dose Route Start Last Admin Trade Name Lamontq PRN Reason Stop Dose Admin Acetaminophen 650 mg 03/04/20 23:40 03/06/20 05:35 Acetaminophen 325 Mg Tablet PO 650 mg Q6H PRN Administration Pain, Mild (Pain Scale 1-3) Atorvastatin Calcium 40 mg 03/05/20 09:00 03/08/20 08:36 Atorvastatin Calcium 40 Mg Tablet PO 40 mg DAILY PALOMO Administration Bicalutamide 50 mg 03/07/20 09:00 03/08/20 08:36 Bicalutamide 50 Mg Tablet PO 50 mg DAILY PALOMO Administration Carbidopa/Levodopa 1 tab 03/04/20 23:40 03/08/20 08:36 Carbidopa/Levodopa 25/100 Tablet PO 1 tab TID PALOMO Administration Docusate Sodium 100 mg 03/04/20 23:40 Docusate Sodium 100 Mg Capsule PO DAILY PRN Constipation Donepezil HCl 10 mg 03/04/20 23:40 03/07/20 20:31 Donepezil Hcl 10 Mg Tablet PO 10 mg BEDTIME PALOMO Administration Doxycycline Hyclate 100 mg 03/05/20 15:00 03/08/20 03:06 Doxycycline Hyclate 100 Mg Tablet PO 100 mg Q12H PALOMO Administration Finasteride 5 mg 03/07/20 09:00 03/08/20 08:36 Finasteride 5 Mg Tablet PO 5 mg DAILY PALOMO Administration Furosemide 40 mg 03/06/20 09:00 03/08/20 08:36 Furosemide 40 Mg Tablet PO 40 mg DAILY PALOMO Administration Protocol Hydroxyzine HCl 10 mg 03/05/20 14:35 03/07/20 16:10 Hydroxyzine Hcl 10 Mg Tablet PO 10 mg Q6H PRN Administration Anxiety Metoprolol Tartrate 25 mg 03/04/20 23:40 03/08/20 08:36 Metoprolol Tartrate 25 Mg Tablet PO 25 mg BID PALOMO Administration Protocol Ondansetron HCl 4 mg 03/04/20 23:40 Ondansetron Hcl 4 Mg/2 Ml Vial IVPUSH Q8H PRN Nausea and Vomiting Pharmacy Consult 1 each 03/04/20 19:45 Consult Rx Perform Med Rec MISCELLANE ONCE PRN Consult order Sodium Chloride 3 ml 03/05/20 00:00 03/08/20 08:37 0.9 % Sodium Chloride Flush 3 Ml Syringe IVFLUSH 3 ml QSHIFT PALOMO Administration Labs CBC & Chem 7: 03/08/20 05:51 03/08/20 05:51 Assessment and Plan (1) Renal failure, acute: Status: Acute (2) Congestive heart failure: Status: Acute (3) Metastasis to bone of unknown primary: Status: Acute (4) Hematuria: Status: Acute (5) A-fib: Problem details: Chronic on chronic anticoagulation Status: Acute (6) Parkinsons: Status: Acute (7) Orthostatic hypotension: Status: Acute Assessment and Plan: acute on chronic systolic congestive heart failure exacerbation patient clinically has significantly improved with no further shortness of breath leg edema has improved except for left lower extremity edema and redness due to cellulitis will continue Lasix 40 mg by mouth daily, follow BMP patient has borderline low blood pressure will continue to follow, if any further drop in blood pressure or patient becomes symptomatic will place him on low-dose midodrin acute on chronic kidney disease stage III kidney function returned to baseline sclerotic metastatic disease incidental finding on CT scan of abdomen elevated PSA 335 , CA 19 9 antigen pending, CEA 3.6 likely has prostate CA with elevated alk-phos, patient seen by Dr. Conway from Urology and placed on Casodex and Proscar patient being followed by Dr. Jones from Oncology bone scan obtained that showed diffuse bony disease informed results to patient and , discussed discharge plan patient wishes him to be discharged home since there is a Thanksgiving republican planned for him by his daughter will obtain PT eval on Monday. atrial fibrillation continue metoprolol , hold for warfarin due to hematuria, INR 1.5 follow INR and resume Coumadin once hematuria improved , informed about risk for stroke due to holding Coumadin but due to risk versus benefit will continue to hold Coumadin for now. will continue metoprolol patient has chronically low normal blood pressure. Parkinson's disease continue home medication Cellulitis left lower extremity since patient has penicillin allergy placed on doxycycline b.i.d. day 4/ patient is afebrile with a normal WBC count , patient has chronic left lower extremity pain itching and swelling hematuria patient seen by Urology likely related to bladder wall inflammation with placement of Sanders and elevated INR follow cbc no AC. hematocrit stable will continue to follow cbc and will discuss with Dr. Conway regarding continued hematuria. DVT prophylaxis will place on compression boots
[2020-03-08] MEDS: hydrOXYzine HCL 10 MG TABLET PO (16:37)
--- NOTE | 2020-03-08 18:02 | PM.UROPN ---
Subjective Subjective Interval history: PSA 335 [place] prostate cancer Add finasteride and casodex Bone scan positive see in office in a week for voiding trial and discussion of biopsy Physical Exam Vital Signs: Vital Signs: Vital Signs Temp Pulse Resp BP Pulse Ox 03/08/20 15:29 98.5 F 108 H 16 94/76 96 03/08/20 11:22 97.5 F 80 16 100/55 L 95 03/08/20 08:36 122 H 109/67 03/08/20 07:22 98 F 122 H 18 109/67 98 03/08/20 03:24 97.8 F 89 18 93/62 92 03/08/20 00:00 97.5 F 80 18 92/60 96 03/07/20 23:32 97.5 F 80 18 92/60 96 03/07/20 19:53 97.5 F 98 18 95/59 L 96 Body Mass Index 19.5 Const: General: cooperative, healthy appearing, comfortable and no acute distress Nutritional Appearance: average body habitus Orientation/consciousness: oriented to person, oriented to place and oriented to time Eyes: General: appearance normal, both eyes and all related structures Chest: Chest palpation & inspection: normal inspection of the chest Resp: Effort & Inspection: normal respiratory effort Cardio: Rate: regular rate GI: Inspection: Yes normal to inspection Skin: Hair: normal Neuro: General: oriented to person, oriented to place and oriented to time Extrem: General: Yes normal to inspection Progress Note: A&P Assessment and plan (1) Prostate cancer: Problem details: finasteride, bicalutamide Status: Acute (2) Bone metastases: Problem details: 03/06/2020 bone scan positive generalized spinal metastases Status: Acute (3) Hydronephrosis concurrent with and due to calculi of kidney and ureter: Status: Acute Assessment and Plan: Sanders catheter in place. Review is outpatient in 7 days for voiding trial Fall Risk Details Current Medications: Current Medications Generic Name Dose Route Start Last Admin Trade Name Freq PRN Reason Stop Dose Admin Acetaminophen 650 mg 03/04/20 23:40 03/06/20 05:35 Acetaminophen 325 Mg Tablet PO 650 mg Q6H PRN Administration Pain, Mild (Pain Scale 1-3) Atorvastatin Calcium 40 mg 03/05/20 09:00 03/08/20 08:36 Atorvastatin Calcium 40 Mg Tablet PO 40 mg DAILY PALOMO Administration Bicalutamide 50 mg 10/31/20 09:00 03/08/20 08:36 Bicalutamide 50 Mg Tablet PO 50 mg DAILY PALOMO Administration Carbidopa/Levodopa 1 tab 03/04/20 23:40 03/08/20 16:37 Carbidopa/Levodopa 25/100 Tablet PO 1 tab TID PALOMO Administration Docusate Sodium 100 mg 03/04/20 23:40 Docusate Sodium 100 Mg Capsule PO DAILY PRN Constipation Donepezil HCl 10 mg 03/04/20 23:40 03/07/20 20:31 Donepezil Hcl 10 Mg Tablet PO 10 mg BEDTIME PALOMO Administration Doxycycline Hyclate 100 mg 03/05/20 15:00 03/08/20 16:37 Doxycycline Hyclate 100 Mg Tablet PO 100 mg Q12H PALOMO Administration Finasteride 5 mg 03/07/20 09:00 03/08/20 08:36 Finasteride 5 Mg Tablet PO 5 mg DAILY PALOMO Administration Furosemide 40 mg 03/06/20 09:00 03/08/20 08:36 Furosemide 40 Mg Tablet PO 40 mg DAILY PALOMO Administration Protocol Hydroxyzine HCl 10 mg 03/05/20 14:35 03/08/20 16:37 Hydroxyzine Hcl 10 Mg Tablet PO 10 mg Q6H PRN Administration Anxiety Metoprolol Tartrate 25 mg 03/04/20 23:40 03/08/20 08:36 Metoprolol Tartrate 25 Mg Tablet PO 25 mg BID PALOMO Administration Protocol Ondansetron HCl 4 mg 03/04/20 23:40 Ondansetron Hcl 4 Mg/2 Ml Vial IVPUSH Q8H PRN Nausea and Vomiting Pharmacy Consult 1 each 03/04/20 19:45 Consult Rx Perform Med Rec MISCELLANE ONCE PRN Consult order Sodium Chloride 3 ml 03/05/20 00:00 03/08/20 16:37 0.9 % Sodium Chloride Flush 3 Ml Syringe IVFLUSH 3 ml QSHIFT PALOMO Administration Time Spent With Patient Time: Total time spent is greater than 50% in coordination of care (as documented) at patient's floor/unit and/or counseling patient: Time with patient: 15 - 24 minutes
[2020-03-08] MEDS: Donepezil HCl 10 MG TABLET PO (21:03)
[2020-03-09] MEDS: 0.9 % Sodium Chloride Flush 3 ML SYRINGE IVFLUSH ×2 (00:47→09:03)
[2020-03-09 03:35] VITALS: BP 104/66; PULSE 88; RESP 16; TEMP 36.5; O2SAT 93
[2020-03-09 05:28] LABS: Hematocrit 35.3 % (42-52); Hemoglobin 11.4 g/dl (14.0-18.0); Mean Corpuscular HGB Conc 32.3 g/dl (31.0-36.0); Mean Corpuscular Hemoglobin 31.6 pg (27.0-33.0); Mean Corpuscular Volume 97.8 fL (80-98); Mean Platelet Volume 11.3 fL (9.4-12.4); NRBC Pct Auto 0.4 /100WBC (0.0-0.2); Platelet Count 144 X10*3/uL (160-400); Red Blood Count 3.61 X10*6/uL (4.60-5.80); Red Cell Distribution Width 14.2 % (11.0-16.0); White Blood Count 4.8 X10*3/uL (4.8-10.8)
[2020-03-09] MEDS: Acetaminophen 325 MG TABLET 650 MG PO (05:38)
[2020-03-09 05:55] LABS: INTERNATIONAL NORM RATIO 1.3 (0.9-1.1)
[2020-03-09 06:00] VITALS: BMI 19.0
[2020-03-09 06:57] VITALS: BP 98/55; PULSE 81; RESP 18; TEMP 36.6; O2SAT 97
[2020-03-09 07:51] LABS: Atypical Lymphs Percent Manual 1 % (0-6); Band Neutrophils Percent 8 % (3-5); Lymphocytes Absolute Manual 0.6 X10*3/uL (0.6-4.8); Lymphocytes Percent Manual 12 % (20-40); Metamyelocytes Absolute 0.1 X10*3/uL; Metamyelocytes Percent 3 %; Monocytes Absolute Manual 0.5 X10*3/uL (0.0-1.2); Monocytes Percent Manual 10 % (2-11); Myelocytes Absolute 0.1 X10*/uL; Myelocytes Percent 2 %; Neutrophils Absolute Manual 3.5 X10*3/uL (2.2-7.9); Neutrophils Percent Manual 64 % (45-73); Platelet Estimate SLIGHTLY DECREASED (NORMAL); Platelet Morphology Comment NORMAL; RBC Morphology NOTED
[2020-03-09 07:52] LABS: Macrocytosis 1+
[2020-03-09 07:53] LABS: Acanthocytes 1+
[2020-03-09 07:54] LABS: Ovalocytes 1+; Polychromasia 1+
[2020-03-09] MEDS: Carbidopa/Levodopa 25/100 TABLET 1 TAB PO (09:02)
[2020-03-09] MEDS: Atorvastatin Calcium 40 MG TABLET PO (09:02)
[2020-03-09 09:03] VITALS: BP 118/52; PULSE 75
[2020-03-09] MEDS: Finasteride 5 MG TABLET PO (09:03)
[2020-03-09] MEDS: Metoprolol Tartrate 25 MG TABLET PO (09:03)
[2020-03-09] MEDS: Bicalutamide 50 MG TABLET PO (09:03)
[2020-03-09] MEDS: Furosemide 40 MG TABLET PO (09:03)
--- NOTE | 2020-03-09 09:57 | MHC.CM.PN ---
met with and pt physical therapy saw pt today and is recommending home with servcies is agreeable referral will be made to [facility] will transport home if pt is able to get in car
[2020-03-09 11:01] VITALS: BP 94/59; PULSE 83; RESP 18; TEMP 36.6; O2SAT 95
[2020-03-09 11:41] LABS: Carbohydrate Antigen 19-9 13 U/mL (<34)
--- NOTE | 2020-03-09 13:13 | PM.DS ---
DS: Providers Provider Date of admission: 03/04/20 22:35 Primary care physician: Marky Contreras MD, DO Consults: 03/04/20 23:40 Consult to Cardiology Routine Consulting Provider: Enoc Thomas Reason for consultation: Heart failure Has provider been notified: No Consult to Hematology / Oncology Routine Consulting Provider: Sheila Odell Reason for consultation: sclerotic metastatic Has provider been notified: No 03/06/20 08:28 Consult to Urology Routine Consulting Provider: Layton Conway Reason for consultation: hematuria possible prostate ca on coumadin Has provider been notified: No DS: Diagnosis Discharge Diagnosis (1) Prostate cancer: Status: Acute Problem details: finasteride, bicalutamide (2) Bone metastases: Status: Acute Problem details: 03/06/2020 bone scan positive generalized spinal metastases (3) Hydronephrosis concurrent with and due to calculi of kidney and ureter: Status: Acute DS: Summary Hospital Course Hospital Course: Chief Complaint: Leg swelling This is a 84 yo M with pmhx A.fib on coumadin, HTN, vascular dementia , parkinsons ds who presents to the hospital Leg swelling. History is obtained from as patient is very hard of hearing and is refusing to wear his hearing aid. According to the patient has been suffering from swelling in his legs, left more than right, as well as increased shortness of breath on exertion over the past few weaks. reports that they have been to pcp which ordered labs, venous dupplex and they followed up today. Was first concerned for cellulitis, but after seeing the lab results, Primary care asked pt and his to go to the hospital. reports that pt has been becoming progressively more sob and has been needing to use his walker because he would need to sit down after walking a short distance. SHe denies pt reporting any cp, he has not had any fever or chills. He Has not reported any abdominal pain nausea or vomiting, diarrhea or constipation. She denies patient complaining of any urinary symptoms. On arrival to the ED hemodynamically stable with no significant abnormal vitals lab significant for BUN of 45 with a creatinine of 2.02 ( 1.18 in the past day), alk-phos of 1705, high sensitivity troponin of 39.5, repeat of 40.7, BNP of 977 on outpatient diagnostic and 815 on repeat labs in the ED UA pending chest x-ray shows: emphysematous changes of the lung with bibasilar scarring. No lobarconsolidation appreciated. due to elevated alk-phos, CT of the abdomen was ordered which showed diffuse sclerotic metastatic disease seen throughout the visualized bony structures. Past medical history: congestive heart failure,Parkinson's disease, vascular dementia, stroke, atrial fibrillation, HLD, hypertension past surgical history: Hernia repair acute on chronic systolic congestive heart failure exacerbation patient clinically has significantly improved with no further shortness of breath, leg edema has improved except for left lower extremity edema and redness due to cellulitis, initially patient received IV Lasix now transition to by mouth Lasix 40 mg by mouth daily, patient has borderline low blood pressure patient remains asymptomatic. acute on chronic kidney disease stage III kidney function returned to baseline metastatic disease incidental finding on CT scan of abdomen elevated PSA 335 , CA 19 9 , CEA 3.6 patient has prostate CA with bony metastatic disease, patient seen by Dr. Conway from Urology and placed on Casodex and Proscar, patient seen by Dr. Jones from Oncology bone scan obtained that showed diffuse bony disease informed results to patient and , patient will have outpatient follow-up with Dr. Conway in 1 week time he is being discharged with Sanders catheter that will be removed after voiding trial given at urology office. atrial fibrillation continue metoprolol , hold for warfarin due to hematuria, INR 1.3 Will continue to hold warfarin for 1 week, informed about risk for stroke due to holding Coumadin but due to risk versus benefit will continue to hold Coumadin for now. recommend to follow-up in [address] Conway and resume Coumadin if recommended. will continue metoprolol patient has chronically low normal blood pressure. Parkinson's disease continue home medication Cellulitis left lower extremity since patient has penicillin allergy placed on doxycycline b.i.d. day 5/7 patient is afebrile with a normal WBC count , patient has chronic left lower extremity pain itching and swelling Two more days of antibiotic dispensed. hematuria patient seen by Urology likely related to bladder wall inflammation with placement of Sanders and elevated INR Hematocrit is stable, hematuria resolved today, hold Coumadin and resume as per Urology. Time Spent with Patient Time attestation: Total time spent providing and/or coordinating discharge services: Physical Exam Vital Signs: Vital Signs: Vital Signs Temp Pulse Resp BP Pulse Ox 03/09/20 11:01 97.9 F 83 18 94/59 L 95 03/09/20 09:03 75 118/52 L 03/09/20 06:57 97.8 F 81 18 98/55 L 97 03/09/20 03:35 97.7 F 88 16 104/66 93 03/08/20 23:51 97.4 F 106 H 16 90/52 L 94 03/08/20 21:03 94 94/64 03/08/20 19:42 97.5 F 92 18 92/60 97 03/08/20 15:29 98.5 F 108 H 16 94/76 96 Body Mass Index 19.0 General patient resting in chair, no acute distress. Neck is supple no JVD. CVS regular rate rhythm, Respiratory lungs clear to auscultation, no respiratory distress Gastrointestinal abdomen soft, nontender, bowel sounds audible. Extremities swelling left lower extremity with hyperemia improving, less tenderness on palpation Neuro nonfocal ,baseline confusion, no behavioral issues Skin no rash Sanders catheter clear urine DS: Data Data Completed and Pending Labs on day of discharge: Labs from last 24 hours 03/09/20 03/09/20 03/05/20 04:06 04:06 05:19 WBC 4.8 RBC 3.61 L Hgb 11.4 L Hct 35.3 L MCV 97.8 MCH 31.6 MCHC 32.3 RDW 14.2 Plt Count 144 L MPV 11.3 Immature Gran % (Auto) Cancelled Neut % (Auto) Cancelled Lymph % (Auto) Cancelled [place] % (Auto) Cancelled Eos % (Auto) Cancelled Baso % (Auto) Cancelled Lymph # (Auto) Cancelled [place] # (Auto) Cancelled Eos # (Auto) Cancelled Baso # (Auto) Cancelled Abs Immat Gran (auto) Cancelled Absolute Neuts (auto) Cancelled Absolute Nucleated RBC 0.020 H Nucleated RBC % (auto) 0.4 H Neutrophils % (Manual) 64 Band Neutrophils % 8 H Lymphocytes % (Manual) 12 L Atypical Lymphs % (Man) 1 Monocytes % (Manual) 10 Metamyelocytes % 3 Myelocytes % 2 Abs Neuts (Manual) 3.5 Lymphocytes # (Manual) 0.6 Monocytes # (Manual) 0.5 Metamyelocytes # 0.1 Myelocytes # 0.1 Platelet Estimate SLIGHTLY DECREASED Plt Morphology Comment NORMAL RBC Morphology NOTED Polychromasia 1+ Macrocytosis 1+ Ovalocytes 1+ Acanthocytes (Spur) 1+ PT 15.0 H INR 1.3 H CA 19-9 Antigen 13 Discharge Plan Discharge Patient Disposition: Home Health Service Referrals: Evan Chavez [Outside] Marky Contreras MD, DO [Primary Care Provider] - Discharge Medications: New bicalutamide 50 mg Tablet 50 mg PO DAILY Qty: 30 RF: 0 doxycycline hyclate 100 mg Tablet 100 mg PO Q12H Qty: 6 RF: 0 finasteride [Proscar] 5 mg Tablet 5 mg PO DAILY Qty: 30 RF: 0 Continued atorvastatin 40 mg tablet 40 mg PO DAILY RF: 0 metoprolol tartrate 25 mg tablet 25 mg PO BID RF: 0 donepezil 10 mg tablet 10 mg PO BEDTIME RF: 0 carbidopa-levodopa 25-100 mg tablet 1 tab PO TID RF: 0 Changed furosemide 20 mg tablet 40 mg PO DAILY Qty: 0 RF: 0 Held warfarin 2.5 mg Tablet 2.5 mg PO SUTUTHSA@1600 RF: 0 Hold Instructions: Resume on 03/16/20. Follow-up with urology when to resume Coumadin warfarin 5 mg Tablet 5 mg PO MOWEFR@1600 RF: 0 Hold Instructions: Resume on 03/16/20. follow-up with urology regarding when to resume Coumadin warfarin 5 mg tablet 5 mg PO DAILY Qty: 90 RF: 0 Hold Instructions: Resume on 03/16/20. Discharge Orders: Discharge Order (Routine); Ordered 03/09/20 Ordered By: Aaron Knott Diet: low salt diet Activity on Discharge: As tolerated Visit Report Forms: Patient Portal Discharge page Care Plan Goals: continue Sanders catheter and follow up with Dr. Conway he will give voiding trial after 1 week and removed the Sanders catheter if appropriate, hold Coumadin and check with Dr. Conway when to resume Coumadin. Health Concerns: Continue all medications as prescribed Plan of Treatment: outpatient follow-up with primary care physician and Dr. Conway
--- NOTE | 2020-03-09 13:28 | MHC.CLN ---
F/U PO 25-50% DIET RX: 2GM NA-APPROPRIATE PT RECEIVING ENSURE TID PROVIDES 1050KCALS, 60G PROTEIN MONITOR PO INTAKE AND WEIGHTS CLOSELY
--- NOTE | 2020-03-09 18:17 | P.F2F_ITS ---
Service Date Service Date: 03/09/20 Encounter Date of encounter: 03/09/20 Encounter: 84-year-old admitted due to bilaterally drill leg swelling diagnosed to have acute on chronic systolic congestive heart failure, acute kidney injury, prostate cancer with diffuse metastatic disease, patient has a Sanders catheter that is new for him has underlying dementia weakness and back pain due to bony Mets therefore will need significant help for weakness med management and teachings for new Sanders catheter. Reasons for Services Reason for retirement: neurological assessment and GI/ assessment Reason for occupational therapy: home safety and mobility MD overseeing care: Aaron Knott MD Homebound: Leaving the home is medically contraindicated at this time without the asist of a device and/or another person due th the listed conditions above and below. Reason homebound: pain with ambulation and weakness related to hospital stay Homebound supporting statement: Patient with dementia new Sanders catheter newly diagnosed prostate cancer with diffuse bony mets Certification: Based on the above findings, I certify that this patient is confined to the home and needs intermittent retirement care, physical therapy and/or speech therapy, or continues to need occupational therapy. The patient is under my care, and I have initiated the establishment of the plan of care. The patient will be followed by a physician who will periodically review the plan of care.
== END 2020-03-09 15:30 | disposition home health service (06) | DRG 292 ==
LOC: HO.ED 21:48 → HO.IMC 23:10
PROVIDERS: Internal Medicine Medical Oncology; Admitting Provider Internal Medicine; Emergency Provider Internal Medicine; PCP Internal Medicine; Visit Provider Hospitalist
DX: I50.23 Acute on chronic systolic (congestive) heart failure (principal); N17.9 Acute kidney failure, unspecified; C79.51 Secondary malignant neoplasm of bone; L03.116 Cellulitis of left lower limb; N13.2 Hydronephrosis with renal and ureteral calculous obstruction; G20 Parkinson's disease; F02.80 Dementia in other diseases classified elsewhere, unspecified severity, without behavioral disturbance, psychotic disturbance, mood disturbance, and anxiety; R79.1 Abnormal coagulation profile; N18.30 Chronic kidney disease, stage 3 unspecified; C61 Malignant neoplasm of prostate; R31.9 Hematuria, unspecified; I25.5 Ischemic cardiomyopathy; I95.1 Orthostatic hypotension; I48.91 Unspecified atrial fibrillation; Z20.828 Contact with and (suspected) exposure to other viral communicable diseases; Z88.0 Allergy status to penicillin; Z79.01 Long term (current) use of anticoagulants; Z79.899 Other long term (current) drug therapy
CPT/HCPCS: 36415; 71045; 74176; 78306; 80048; 80053; 81001; 82378; 82977; 83880; 84153; 84443; 84484; 85007; 85025; 85027; 85610; 85652; 86140; 86301; 87635; 93005; 93971; 96374; 97162; 99284; 99285; A9503; C1758; J1940

== ENCOUNTER → 2020-03-17 09:10 | Outpatient (BNVA) | payer MEDICARE, SELFPAY | PROVIDERS: PCP Internal Medicine; Referring Provider Internal Medicine; Visit Provider Urology | DX: Z76.89 Persons encountering health services in other specified circumstances (principal) | CPT/HCPCS: 99212 ==

== ENCOUNTER 2020-03-24 11:38 | Outpatient (REF) | payer MEDICARE, SELFPAY ==
[2020-03-24 11:55] VITALS: BP 94/46; PULSE 100; RESP 16; TEMP 36.4
[2020-03-24 11:56] VITALS: BMI 18.3
[2020-03-24 13:08] VITALS: BP 79/55; PULSE 120; RESP 16
--- NOTE | 2020-03-24 13:14 | PM.OP ---
Brief Operative Note Date of Service: 03/24/20 Pre-op diagnosis: Metastatic prostate cancer Post-op diagnosis: same Procedure: 1. Transrectal ultrasound measurement prostate 2. Transrectal ultrasound-guided prostate nerve block 3. Transrectal ultrasound prostate biopsy Implants: None Surgeon: Layton Conway MD Anesthesia: local Estimated blood loss (mL): 0 Pathology: other (For prostate cores) Condition: stable Disposition: same day
--- NOTE | 2020-03-24 13:15 | W.PM.OPN ---
Operative Note Operative Note Date of Service: 03/24/20 Narrative: Preoperative diagnosis: Elevated PSA Postoperative diagnosis: Elevated PSA Procedure: 1. transrectal ultrasound measurement of prostate 2. transrectal ultrasound-guided pudendal nerve block 3. transrectal ultrasound-guided prostate biopsy 12 core Surgeon: Dr. Layton Conway Anesthetic: Local Indications for procedure: Elevated PSA Prostate Cancer Procedure: After informed consent was verified, the patient was brought into the procedure area and lay left-hand side down on the table. Patient identity confirmed. Perioperative antibiotics confirmed. Gel was placed per rectum. Under BETHANY prostate was firm particularly left side. Ultrasound probe was placed per rectum The prostate was measured in 3 dimensions Total volume equals 45 g There were no cystic structures and no calcifications noted and the prostate was homogeneous in nature A ultrasound-guided pudendal nerve block was performed using 10 cc of 1% lidocaine. 8 cc was placed at the base and 2 cc of the apex. A 4 core biopsy was performed. Two cores each side. These were taken at the mid and apex of the prostate limited cores were performed due to age and progression of disease. He tolerated the procedure well. Was able to ambulate to bathroom after 5 minutes. Printed instructions regarding antibiotic use and common side effects such as low-grade temperature and bleeding were given.
== END 2020-03-24 11:39 | disposition home or self-care (01) ==
LOC: HO.MS 11:38
PROVIDERS: PCP Internal Medicine; Visit Provider Urology
PROC: (CPT 55700; principal; 2020-03-24 12:00)
DX: C61 Malignant neoplasm of prostate (principal); R97.20 Elevated prostate specific antigen [PSA]; I48.20 Chronic atrial fibrillation, unspecified; I50.20 Unspecified systolic (congestive) heart failure; Z79.01 Long term (current) use of anticoagulants
CPT/HCPCS: 55700; 76942; 88305

== ENCOUNTER → 2020-04-01 13:30 | Outpatient (BNVA) | payer MEDICARE, SELFPAY | PROVIDERS: PCP Internal Medicine; Referring Provider Internal Medicine; Visit Provider Urology | DX: Z76.89 Persons encountering health services in other specified circumstances (principal) | CPT/HCPCS: 99212 ==

== ENCOUNTER → 2020-04-06 11:25 | Outpatient (BNVA) | payer MEDICARE, SELFPAY | PROVIDERS: PCP Internal Medicine; Visit Provider Internal Medicine | DX: Z76.89 Persons encountering health services in other specified circumstances (principal) ==

== ENCOUNTER 2020-04-20 06:57 | Day surgery (SDC) | payer MEDICARE, SELFPAY ==
[2020-04-10 15:12] VITALS: BMI 18.8
--- NOTE | 2020-04-16 13:50 | HO.ANESPROP2 ---
Documented by User: Laurita Brandt 04/17/20 12:19 HPI - Anesthesia Eval Consult details Narrative: 85yo M for Cystoscopy Bladder Stone Removal Pt with prostate CA with bony mets. Pt to sign on with hospice after procedure. Dementia is HCP, signs PMFSH Past Medical History Medical History A-fib Bladder stone Cellulitis of leg, left CHF (congestive heart failure) CVA (cerebral vascular accident) Dementia High cholesterol [place] (hard of hearing) Indwelling Sanders catheter present Ischemic cardiomyopathy Orthostatic hypotension Parkinsons Surgical History Surgical History History of open reduction and internal fixation (ORIF) procedure Hx of bilateral cataract extraction Hx of bilateral inguinal hernia repair Hx of colonoscopy Social History Social History Household Members: Spouse Housing: House Are you a primary career development coordinator/teacher to a significant other at home: No Do you presently have visiting nurse or other home services: Yes ([facility] 3 x week) Alcohol intake: never Smoking Status: Never smoker Second Hand Smoke Exposure: No Use of substances other than those prescribed or required for medical reasons: No Advance Directives: No Advance Directives Information Provided: No Advance Directives on File: No service: Yes Current occupational status: retired Meds Allergies Allergy/AdvReac Type Severity Reaction Status Date / Time Penicillins Allergy Unknown SKIN Verified 04/20/20 07:23 EXCORIATION HANDS Home Medications Medication Instructions Recorded Confirmed Type atorvastatin 40 mg PO DAILY 03/04/20 04/10/20 History carbidopa-levodopa 1 tab PO TID 03/04/20 04/10/20 History donepezil 10 mg PO BEDTIME 03/04/20 04/10/20 History metoprolol tartrate 25 mg PO BID 03/04/20 04/10/20 History warfarin 2.5 mg PO SUTUTHSA@1600 03/04/20 04/06/20 History warfarin 5 mg PO MOWEFR@1600 03/04/20 04/06/20 History Exam Exam Date and Time: April 16, 2020 1350 Height,Weight and Vital Signs: Height 5 ft 8 in Weight 56.245 kg Narrative Narrative: EKG 02/2020: A fib with RSR or QR pattern in V1 suggests RV conduction delay; Nonspec ST abn Assessment and Plan Assessment Anesthesia Assessment: Chart Reviewed Documented by User: Lazaro López 04/20/20 08:05 PMFSH Past Medical History Medical History A-fib Bladder stone Cellulitis of leg, left CHF (congestive heart failure) CVA (cerebral vascular accident) Dementia High cholesterol [place] (hard of hearing) Indwelling Sanders catheter present Ischemic cardiomyopathy Orthostatic hypotension Parkinsons Surgical History Surgical History History of open reduction and internal fixation (ORIF) procedure Hx of bilateral cataract extraction Hx of bilateral inguinal hernia repair Hx of colonoscopy Social History Social History Household Members: Spouse Housing: House Are you a primary career development coordinator/teacher to a significant other at home: No Do you presently have visiting nurse or other home services: Yes ([facility] 3 x week) Alcohol intake: never Smoking Status: Never smoker Second Hand Smoke Exposure: No Use of substances other than those prescribed or required for medical reasons: No Advance Directives: No Advance Directives Information Provided: No Advance Directives on File: No service: Yes Current occupational status: retired Meds Allergies Allergy/AdvReac Type Severity Reaction Status Date / Time Penicillins Allergy Unknown SKIN Verified 04/20/20 07:23 EXCORIATION HANDS Home Medications Medication Instructions Recorded Confirmed Type atorvastatin 40 mg PO DAILY 03/04/20 04/10/20 History carbidopa-levodopa 1 tab PO TID 03/04/20 04/10/20 History donepezil 10 mg PO BEDTIME 03/04/20 04/10/20 History metoprolol tartrate 25 mg PO BID 03/04/20 04/10/20 History warfarin 2.5 mg PO SUTUTHSA@1600 03/04/20 04/06/20 History warfarin 5 mg PO MOWEFR@1600 03/04/20 04/06/20 History Exam Airway Mallampati Class: III TM Dist: >3cm Neck ROM: Limited Loose/Missing/Broken Teeth: Yes Heart: irreg irreg S1S2 Lungs: cta b/l Assessment and Plan Assessment Anesthesia Assessment: Anesthesia Plan Discussed, PAT Visit and Chart Reviewed Final Anesthetic Review NPO: Yes ASA Class: IV Final Preanesthetic Review: No Changes in Pt Med Stat, Meds/Allgs Chart Reviewed, Consent Obtained/Reviewed (from ) and Anes Risks/Benef Reviewed Patient Risk: High Procedure Risk: Low Assessment/Block/Sedation in SS: Assess/Block/Sedation-SS Anesthetic Plan Anesthetic Plan: GA Disposition: Standard PACU
[2020-04-20] MEDS: levoFLOXacin 500 MG TABLET PO (07:45)
[2020-04-20] MEDS: Lactated Ringers 1,000 ML 20 ML IVCONT (07:48)
[2020-04-20 07:50] VITALS: BP 104/71; PULSE 75; RESP 18; TEMP 36.4; O2SAT 96
[2020-04-20 08:07] LABS: INTERNATIONAL NORM RATIO 1.4 (0.9-1.1); Prothrombin Time 16.8 SEC (10.8-13.0)
--- NOTE | 2020-04-20 08:24 | MHC.SHP ---
Pre-Procedural Eval Section B Chief Complaint: hx bladder stone Details of Present Illness: bladder stone removal - can be done with sedation Relevant Family History (Specify if Yes): No Present Medications: see Short Stay Collaborative assessment Medical History: Significant History Allergies: Allergies Allergy/AdvReac Type Severity Reaction Status Date / Time Penicillins Allergy Unknown SKIN Verified 04/20/20 07:23 EXCORIATION HANDS Review of Systems Sugical H&P ROS: Negative: Constitution, Cardiovascular, Respiratory, Neurological, Psychiatric, Hem-Onc, Allergic/Immunologic, Gastrointestinal, Genitourinary, Musculoskeletal, Integumentary, Endocrine and Eyes/Ears/Nose/Throat Exam Surgical H&P Exam: Normal: HEENT, Normal: Heart, Normal: Lungs, Normal: Extremities, Normal: Abdomen, Normal: Skin and Normal: Neurological Plan Diagnosis/Plan: Unchanged Patient has been examined and remains a candidate for the planned procedure
--- NOTE | 2020-04-20 09:21 | PM.OP ---
Brief Operative Note Date of Service: 04/20/20 Pre-op diagnosis: Bladder stones Post-op diagnosis: same Procedure: Cystoscopy, cystolitholapaxy using laser Surgeon: Layton Conway MD Anesthesia: MAC Estimated blood loss (mL): 0 Pathology: other Condition: stable Disposition: same day
--- NOTE | 2020-04-20 09:22 | W.PM.OPN ---
Operative Note Operative Note Date of Service: 04/20/20 Narrative: PreOperative Diagnosis: Bladder stones Post Operative Diagnosis: Bladder stone Procedure: Cystoscopy, cystolitholapaxy with laser Surgeon: Dr Layton Conway Anesthesia: sedation Indications for procedure: This is an 85-year-old male. Presented with recurrent UTI and hematuria. Found to have bladder stones on imaging. Has multiple comorbidities. This is a palliative procedure to remove pain from his bladder stones. Procedure: After informed consent was verified the patient was brought to the operating room and placed in a supine position. anesthesia was administered per protocol. Twenty-two Luxembourger cystoscope inserted per urethra. The bladder stones were encountered. Attempt is made to crush the stone however was very hard. Two small stones were able to be easily removed. The 22 Luxembourger cystoscope was exchanged for a 24 Luxem[place]ger resectoscope and using a holmium laser the stone was broken into small pieces and removed. A 500 nm laser fiber was used with settings between 0.8 in 1.2 joules and 6-8 hertz. He does have a larger prostate and if they had been a different circumstance of prostate procedure would be warranted. Sanders catheter placed at the completion the procedure size 18 Tolerated the procedure was transferred to the recovery area Pathology: Bladder stones Drains: Eighteen Luxembourger Sanders catheter
[2020-04-20 09:24] VITALS: BP 87/58; PULSE 72; RESP 14; TEMP 36.4; O2SAT 100
[2020-04-20 09:30] VITALS: BP 95/61; PULSE 68; RESP 16; O2SAT 100
[2020-04-20 09:39] VITALS: BP 97/59; PULSE 71; RESP 18; O2SAT 100
[2020-04-20 09:51] VITALS: BP 95/61; PULSE 71; RESP 16; TEMP 36.5; O2SAT 100
--- NOTE | 2020-04-20 10:25 | HO.POSTANES ---
Post Anesthesia Evaluation Post Anesthesia Evaluation Vital Signs: Vital Signs Temp Pulse Resp BP Pulse Ox 04/20/20 09:51 97.7 F 71 16 95/61 100 04/20/20 09:39 71 18 97/59 L 100 04/20/20 09:30 68 16 95/61 100 04/20/20 09:24 97.5 F 72 14 87/58 L 100 04/20/20 07:50 97.6 F 75 18 104/71 96 Anesthesia: Monitored Mental Status: Awake Pain Control: Satisfactory Nausea/Vomiting: None Hydration: Adequate Anesthesia-Related Issues: No Anes. Related Issues
== END 2020-04-20 10:39 | disposition home or self-care (01) ==
PROVIDERS: Nurse Practitioner; PCP Internal Medicine; Visit Provider Urology
PROC: 0TCB8ZZ Extirpation of Matter from Bladder, Via Natural or Artificial Opening Endoscopic (ICD-10-PCS; CPT 52352; principal; 2020-04-20 08:30)
DX: N21.0 Calculus in bladder (principal); C61 Malignant neoplasm of prostate; C79.51 Secondary malignant neoplasm of bone; I48.91 Unspecified atrial fibrillation; Z86.73 Personal history of transient ischemic attack (TIA), and cerebral infarction without residual deficits; Z87.440 Personal history of urinary (tract) infections; Z79.01 Long term (current) use of anticoagulants; Z88.0 Allergy status to penicillin
CPT/HCPCS: 52317; 36415; 85610; 88300

== ENCOUNTER → 2024-01-03 13:32 | Outpatient (RCR) | payer MEDICARE, SELFPAY ==
[2020-03-16 15:24] LABS: MANUAL DIFF FLAG NO
[2020-03-16 15:27] LABS: Basophils Percent Auto 0.7 % (0-2); Eosinophils Percent Auto 0.7 % (0-4); Hemoglobin 11.9 g/dl (14.0-18.0); Imm Gran Abs Auto 0.13 X10*3/uL (0.00-0.03); Imm Gran Pct Auto 2.9 % (0.0-0.4); Lymphocytes Absolute Auto 0.8 X10*3/uL (1.2-4.9); Lymphocytes Percent Auto 18.6 % (20-40); Mean Corpuscular HGB Conc 32.2 g/dl (31.0-36.0); Mean Corpuscular Hemoglobin 31.6 pg (27.0-33.0); Mean Corpuscular Volume 98.4 fL (80-98); Mean Platelet Volume 10.4 fL (9.4-12.4); Monocytes Absolute Auto 0.4 X10*3/uL (0.1-1.2); Monocytes Percent Auto 8.7 % (2-11); NRBC Pct Auto 0.4 /100WBC (0.0-0.2); Neutrophils Absolute Auto 3.1 X10*3/uL (2.0-8.3); Neutrophils Percent Auto 68.4 % (45-73); Platelet Count 155 X10*3/uL (160-400); Red Blood Count 3.76 X10*6/uL (4.60-5.80); Red Cell Distribution Width 14.7 % (11.0-16.0); White Blood Count 4.5 X10*3/uL (4.8-10.8)
[2020-03-16 15:29] VITALS: BP 96/58; PULSE 88; RESP 12; TEMP 36.8; O2SAT 99; BMI 17.9
[2020-03-16 16:00] LABS: Alanine Aminotransferase 7 U/L (0-40); Albumin Level 3.4 g/dL (3.5-5.0); Alkaline Phosphatase 2129 U/L (39-117); Anion Gap 12 (12-20); Aspartate Amino Transferase 17 U/L (5-37); Bilirubin Total 0.8 mg/dL (0.0-1.0); Blood Urea Nitrogen 33 mg/dL (9-16); Calcium 7.7 mg/dL (8.4-10.2); Carbon Dioxide 29 mmol/L (22-29); Chloride 109 mmol/L (96-108); Creatinine Clr Calc Pharmacy 37.9; Estimated Glomerular Filt Rate > 60; Glucose Random 95 mg/dL (60-115); Sodium 146 mmol/L (135-145)
[2020-03-16 16:12] LABS: Vitamin D 25-OH Total 13.1 ng/mL (>30)
--- NOTE | 2020-03-16 16:21 | P.PNHO_ITS ---
Medical Summary - Medical Summary Chief complaint: follow-up for: Prostate cancer with bone metastases. Medical Summary: DIAGNOSIS: PROSTATE CANCER WITH BONE METASTASES. OBSTRUCTIVE UROPATHY. LEFT LOWER EXTREMITY CELLULITIS. Interval History Interval history: This is a pleasant unfortunate 84-year-old gentleman who is here for a follow- up visit. He is accompanied by his and his son who is a airplane pilot and visiting from [place]. The daughter was available by phone. He noted pain in his left leg. it became red and inflamed. He was diagnosed with cellulitis. He has been started on doxycycline. He still has the Sanders catheter in. He actually has an appointment with Dr. Conway tomorrow. He denies any bony aches nor pains. His tells me his back has been distorted, chronically. he had some lower pelvic pain which was attributed to hemorrhoids. he had been doing Sitz part and using hemorrhoidal cream. He denies any fever nor chills. He Is extremely fatigued. He denies any abdominal pain nausea vomiting heartburn or indigestion. His bowels are working without any gross blood in it. His appetite is fair. He has lost weight. He was 140 lb then went down to 118 and now 125. some of it could be the effect of Lasix. He appears a little confused. He has Parkinson's disease. He is in good spirits. Rest of the review of systems is unremarkable. Review of Systems - Constitutional Reports daytime sleepiness, Reports fatigue, Reports lack of energy, Reports malaise, Reports weight loss, Denies fever(s) - Eyes Denies blurry vision - ENT Reports system reviewed and no additional complaints, except as documented - Cardiovascular Denies chest pain at rest - Respiratory Denies chest congestion - Gastrointestinal Reports change in bowel habits, Reports constipation, Denies abdominal pain, Denies bright, red blood in stools - Genitourinary Genitourinary: Reports difficulty urinating - Musculoskeletal Reports back pain - Integumentary/Breasts Skin/Breast: Denies bleeding lesions - Neurologic Reports system reviewed and no additional complaints, except as documented, De nies hearing normal - Psychiatric Reports anxiety - Endocrine Denies excessive sweating - Allergic/Immunologic Denies GI upset with certain foods PMFSH Medical History: Medical History (Last Reviewed 03/05/20 @ 11:00 by Enoc Thomas MD) A-fib Bladder stone CHF (congestive heart failure) CVA (cerebral vascular accident) Dementia High cholesterol [place] (hard of hearing) Ischemic cardiomyopathy Orthostatic hypotension Parkinsons Home Medications and Allergies Home Medications Medication Instructions Recorded Confirmed Type atorvastatin 40 mg PO DAILY 03/04/20 03/17/20 History carbidopa-levodopa 1 tab PO TID 03/04/20 03/17/20 History donepezil 10 mg PO BEDTIME 03/04/20 03/17/20 History metoprolol tartrate 25 mg PO BID 03/04/20 03/17/20 History warfarin 2.5 mg PO SUTUTHSA@1600 03/04/20 03/17/20 History warfarin 5 mg PO MOWEFR@1600 03/04/20 03/17/20 History Allergies Allergy/AdvReac Type Severity Reaction Status Date / Time Penicillins Allergy Unknown SKIN Verified 03/05/20 16:23 EXCORIATION HANDS Exam Vital signs: Vital Signs Temp 98.2 F 03/16/20 15:29 Pulse 88 03/16/20 15:29 Resp 12 03/16/20 15:29 BP 96/58 L 03/16/20 15:29 Pulse Ox 99 03/16/20 15:29 Intake & Output 03/15/20 03/16/20 03/16/20 18:59 06:59 18:59 Other: Weight 53.63 kg Weight 53.63 kg Body Mass Index 17.9 - Constitutional Present: mild distress - Routine HEENT Exam Head: Present: normal inspection ENT: Present: mucous membranes moist - Routine Neck Exam Present: full ROM - Routine Respiratory Exam Present: CTAB - Routine Cardiovascular Exam Cardiovascular: Present: RRR, S1, S2 - Routine Abdominal Exam Present: soft, nontender - Routine Rectal Exam Patient deferred: digital exam - Routine Extremities Exam Present: pedal edema, tenderness Comments: Cellulitis left leg. - Routine Back/Spine/Pelvis Exam Back/Spine: Present: paraspinal tenderness - Routine Skin Exam Present: intact, erythema, warm, rash - Routine Neurological Exam Present: alert, oriented X3 - Detailed Neurological Exam: Coma Scale Eye Opening: Spontaneous (4) Motor Response: Obeys commands (6) Data - Labs CBC & Chem 7: 03/16/20 15:18 03/16/20 15:18 Labs: Laboratory Results - last 24 hr 11/09/20 11/09/20 15:18 15:18 WBC 4.5 L RBC 3.76 L Hgb 11.9 L Hct 37.0 L MCV 98.4 H MCH 31.6 MCHC 32.2 RDW 14.7 Plt Count 155 L MPV 10.4 Immature Gran % (Auto) 2.9 H Neut % (Auto) 68.4 Lymph % (Auto) 18.6 L [place] % (Auto) 8.7 Eos % (Auto) 0.7 Baso % (Auto) 0.7 Lymph # (Auto) 0.8 L [place] # (Auto) 0.4 Eos # (Auto) 0.0 Baso # (Auto) 0.0 Abs Immat Gran (auto) 0.13 H Absolute Neuts (auto) 3.1 Absolute Nucleated RBC 0.020 H Nucleated RBC % (auto) 0.4 H Sodium 146 H Potassium 4.0 Chloride 109 H Carbon Dioxide 29 Anion Gap 12 BUN 33 H Creatinine 1.10 Estim Creat Clear Calc 37.9 Estimated GFR > 60 Random Glucose 95 Calcium 7.7 L Total Bilirubin 0.8 AST 17 ALT 7 Alkaline Phosphatase 2129 H D Total Protein 6.0 L Albumin 3.4 L 25-OH Vitamin D Total 13.1 Progress Note: A/P (1) Prostate cancer metastatic to bone Status: Acute Assessment and plan: This is a pleasant unfortunate 84-year-old gentleman with a previous history of hypertension, atrial fibrillation on warfarin, Parkinson's disease and vascular dementia. He presented with CHF and left lower extremity cellulitis. He has incidentally been noted to have diffuse sclerotic metastatic disease seen throughout the visualized bony structures. Previous CT scan had been normal. Bladder is a relatively distended with fullness to both renal pelves. Chronic bladder outlet obstruction. PSA elevated at 335. CEA 3.6. CA 19-9: 13. Bone scan: Widespread metastatic tumor involvement of bone with most severe involvement in the spine and thoracic cage abnormalities also present in proximal upper and lower extremities. Most likely he has metastatic prostate cancer with bone Mets, especially given the sclerotic picture and the finding of bladder distension. I explained the diagnosis and guarded prognosis to the patient his , his daughter on the phone, and his son from [place]. treatment options were discussed. He is already on the Casodex and finasteride. I offered them Enzalutamide as androgen [place] and Denosumab, a bisphosphonate for bony metastases. Details of the regimen including potential side effects were addressed with them. Written literature was provided. They met with our case packer and sealer about prescription coverage and setting up palliative care. I have written the prescription and given it for insurance prior authorization. PLAN: Once the medications are available he will get started. He actually has an appointment with Dr. Conway tomorrow to address the issue of the Sanders catheter. They will return in a couple weeks for a follow-up visit. All the questions were answered to their satisfaction. Will arrange for home health services. Thank you, cc: Dr. Lawson. Dr. Bright Conway. - Time Spent With Patient Total time spent is greater than 50% in coordination of care (as documented) at patient's floor/unit and/or counseling patient: 25 - 35 minutes
--- NOTE | 2020-03-16 16:35 | MHC.HEMONCSW ---
NO PA NEEDED FOR EITHER DENOSUMAB OR XTANDI. 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 PT INSURANCE IS MEDICARE A/B PRIMARY AND MEDEX SECONDARY. [employer] IS MEDICARE PART D.
--- NOTE | 2020-03-19 09:09 | MHC.HEMONCSW ---
ORDERS PALLIATIVE CARE. PER [facility] AT [facility], NO ORDER ENTRY ADMINISTRATOR AVAILABILITY. DUE TO THIS, THEY WILL STAY WITH CURRENT [facility] SERVICES.
--- NOTE | 2020-03-20 10:05 | MHC.HEMONCSW ---
appealing to [employer], trent. phoned, spoke with angie. also, initiated new auth for estuardo healy faxing me more info. requested trent expedited 72 hour decision.
--- NOTE | 2020-03-20 10:41 | MHC.HEMONCSW ---
reference # for speaking with angie/estuardo is [id number]
[2020-03-24 13:22] VITALS: BP 98/59; PULSE 73; RESP 18; TEMP 36.6; O2SAT 97
--- NOTE | 2020-03-24 13:41 | P.PNHO_ITS ---
Medical Summary - Medical Summary Chief complaint: follow-up for prostate cancer Medical Summary: DIAGNOSIS: PROSTATE CANCER WITH BONE METASTASES. OBSTRUCTIVE UROPATHY. LEFT LOWER EXTREMITY CELLULITIS. Interval History Interval history: This is a pleasant unfortunate 84-year-old gentleman who is here for a follow- up visit. He was scheduled for a prostate biopsy today by Dr. Stuart. He was brought down after that to receive the Lupron shot. He had redness and inflammation in his left leg. He was diagnosed with cellulitis. He was started on Doxycycline. This is his 2nd course. He will finish it in a day. There is a small open area in the middle. The visiting nurses have been dressing it. It still appears rather red. I advised them to follow up with for further suggestion. He denies any bony aches nor pains. His tells me his back has been distorted, chronically. he had some lower pelvic pain which was attributed to hemorrhoids. he had been doing Sitz part and using hemorrhoidal cream. He denies any fever nor chills. He Is extremely fatigued. He denies any abdominal pain nausea vomiting heartburn or indigestion. His bowels are working without any gross blood in it. His appetite is fair. He has lost weight. He was 140 lb then went down to 118 and now 125. Some of it could be the effect of Lasix. He appears a little confused. He has Parkinson's disease. He still has the Sanders catheter in. He will be following up with Dr. Conway, in a couple of weeks. He is in good spirits. Rest of the review of systems is unremarkable. Review of Systems - Constitutional Reports body ache(s), Reports lack of energy - Eyes Denies blurry vision - ENT Reports system reviewed and no additional complaints, except as documented - Cardiovascular Denies chest pain at rest - Respiratory Denies chest congestion - Gastrointestinal Denies abdominal pain, Denies change in bowel habits - Genitourinary Genitourinary: Reports difficulty urinating, Reports urinary hesitancy - Musculoskeletal Reports abnormal walking - Integumentary/Breasts Skin/Breast: Denies bleeding lesions - Neurologic Reports system reviewed and no additional complaints, except as documented, Denies hearing normal - Psychiatric Reports anxiety, Denies abnormal sleep pattern [facility] Medical History: Medical History (Last Reviewed 03/05/20 @ 11:00 by Enoc Thomas MD) A-fib Bladder stone CHF (congestive heart failure) CVA (cerebral vascular accident) Dementia High cholesterol [place] (hard of hearing) Ischemic cardiomyopathy Orthostatic hypotension Parkinsons Functional capacity: wheelchair bound Patient : No Home Medications and Allergies Current Medications: Current Medications Generic Name Dose Route Start Last Admin Trade Name Ata PRN Reason Stop Dose Admin Leuprolide Acetate 45 mg 03/24/20 00:00 Leuprolide Acetate 45 Mg Syringe SUBCUT 03/24/20 23:59 ONCE PAL[place] Home Medications Medication Instructions Recorded Confirmed Type atorvastatin 40 mg PO DAILY 03/04/20 03/17/20 History carbidopa-levodopa 1 tab PO TID 03/04/20 03/17/20 History donepezil 10 mg PO BEDTIME 03/04/20 03/17/20 History metoprolol tartrate 25 mg PO BID 03/04/20 03/17/20 History warfarin 2.5 mg PO SUTUTHSA@1600 03/04/20 03/17/20 History warfarin 5 mg PO MOWEFR@1600 03/04/20 03/17/20 History Allergies Allergy/AdvReac Type Severity Reaction Status Date / Time Penicillins Allergy Unknown SKIN Verified 03/05/20 16:23 EXCORIATION HANDS Exam Vital signs: Vital Signs Temp 98.2 F 03/16/20 15:29 Pulse 88 03/16/20 15:29 Resp 12 03/16/20 15:29 BP 96/58 L 03/16/20 15:29 Pulse Ox 99 03/16/20 15:29 Intake & Output 03/15/20 03/16/20 03/16/20 18:59 06:59 18:59 Other: Weight 53.63 kg Weight 53.63 kg Body Mass Index 17.9 - Constitutional Present: mild distress - Routine HEENT Exam Head: Present: normal inspection - Routine Neck Exam Present: full ROM - Routine Respiratory Exam Present: CTAB - Routine Cardiovascular Exam Cardiovascular: Present: RRR, S1, S2 - Routine Abdominal Exam Present: soft, nontender - Routine Extremities Exam Present: pedal edema, tenderness - Routine Back/Spine/Pelvis Exam Back/Spine: Present: paraspinal tenderness - Routine Skin Exam Present: intact, erythema, warm, rash - Routine Neurological Exam Present: alert, oriented X3 - Detailed Neurological Exam: Coma Scale Eye Opening: Spontaneous (4) Data - Labs CBC & Chem 7: 03/16/20 15:18 03/16/20 15:18 Labs: 03/16/20 15:18 Complete Blood Count Auto Diff Routine Comprehensive Met. Panel Routine Vitamin D 25-OH Total Routine Laboratory Last Values WBC 4.5 X10*3/uL (4.8-10.8) L 03/16/20 15:18 RBC 3.76 X10*6/uL (4.60-5.80) L 03/16/20 15:18 Hgb 11.9 g/dl (14.0-18.0) L 03/16/20 15:18 Hct 37.0 % (42-52) L 03/16/20 15:18 MCV 98.4 fL (80-98) H 03/16/20 15:18 MCH 31.6 pg (27.0-33.0) 03/16/20 15:18 MCHC 32.2 g/dl (31.0-36.0) 03/16/20 15:18 RDW 14.7 % (11.0-16.0) 03/16/20 15:18 Plt Count 155 X10*3/uL (160-400) L 03/16/20 15:18 MPV 10.4 fL (9.4-12.4) 03/16/20 15:18 Immature Gran % (Auto) 2.9 % (0.0-0.4) H 03/16/20 15:18 Neut % (Auto) 68.4 % (45-73) 03/16/20 15:18 Lymph % (Auto) 18.6 % (20-40) L 03/16/20 15:18 [place] % (Auto) 8.7 % (2-11) 03/16/20 15:18 Eos % (Auto) 0.7 % (0-4) 03/16/20 15:18 Baso % (Auto) 0.7 % (0-2) 03/16/20 15:18 Lymph # (Auto) 0.8 X10*3/uL (1.2-4.9) L 03/16/20 15:18 [place] # (Auto) 0.4 X10*3/uL (0.1-1.2) 03/16/20 15:18 Eos # (Auto) 0.0 X10*3/uL (0.0-0.4) 03/16/20 15:18 Baso # (Auto) 0.0 X10*3/uL (0.0-0.2) 03/16/20 15:18 Abs Immat Gran (auto) 0.13 X10*3/uL (0.00-0.03) H 03/16/20 15:18 Absolute Neuts (auto) 3.1 X10*3/uL (2.0-8.3) 03/16/20 15:18 Absolute Nucleated RBC 0.020 X10*3/uL (0.0-0.012) H 03/16/20 15:18 Nucleated RBC % (auto) 0.4 /100WBC (0.0-0.2) H 03/16/20 15:18 Sodium 146 mmol/L (135-145) H 03/16/20 15:18 Potassium 4.0 mmol/l (3.3-5.1) 03/16/20 15:18 Chloride 109 mmol/L (96-108) H 03/16/20 15:18 Carbon Dioxide 29 mmol/L (22-29) 03/16/20 15:18 Anion Gap 12 (12-20) 03/16/20 15:18 BUN 33 mg/dL (9-16) H 03/16/20 15:18 Creatinine 1.10 mg/dL (0.5-1.4) 03/16/20 15:18 Estim Creat Clear Calc 37.9 03/16/20 15:18 Estimated GFR > 60 03/16/20 15:18 Random Glucose 95 mg/dL (60-115) 03/16/20 15:18 Calcium 7.7 mg/dL (8.4-10.2) L 03/16/20 15:18 Total Bilirubin 0.8 mg/dL (0.0-1.0) 03/16/20 15:18 AST 17 U/L (5-37) 03/16/20 15:18 ALT 7 U/L (0-40) 03/16/20 15:18 Alkaline Phosphatase 2129 U/L (39-117) H D 03/16/20 15:18 Total Protein 6.0 g/dL (6.5-8.0) L 03/16/20 15:18 Albumin 3.4 g/dL (3.5-5.0) L 03/16/20 15:18 25-OH Vitamin D Total 13.1 ng/mL (>30) 03/16/20 15:18 Progress Note: A/P (1) Prostate cancer metastatic to bone Status: Acute Assessment and plan: This is a pleasant unfortunate 84-year-old gentleman with a previous history of hypertension, atrial fibrillation on warfarin, Parkinson's disease and vascular dementia. He presented with CHF and left lower extremity cellulitis. He has incidentally been noted to have diffuse sclerotic metastatic disease seen throughout the visualized bony structures. Previous CT scan had been normal. Bladder is a relatively distended with fullness to both renal pelves. Chronic bladder outlet obstruction. PSA elevated at 335. CEA 3.6. CA 19-9: 13. Bone scan: Widespread metastatic tumor involvement of bone with most severe involvement in the spine and thoracic cage abnormalities also present in proximal upper and lower extremities. He has Metastatic prostate cancer with bone Mets, especially given the sclerotic picture and the finding of bladder distension. At his last visit, I explained the diagnosis and guarded prognosis to the patient his , his daughter on the phone, and his son from [place]. Treatment options were discussed. He is already on the Casodex and finasteride. I offered them total androgen blockade with LHRH analogue and Enzalutamide as androgen [place] and Denosumab, a bisphosphonate for bony metastases. Details of the regimen including potential side effects were addressed with them. Written literature was provided. They met with our heel caser about prescription coverage and setting up palliative care. I have written the prescription and given it for insurance prior authorization. He had the prostate biopsy done. PLAN: He is here to get started on the LHRH analogue. We are trying to get the enzalutamide approved by insurance. He will start that once it is approved. They will return in a couple weeks for a follow-up visit. All the questions were answered to their satisfaction. l have arranged for home health services. Thank you, cc: Dr. Lawson. Dr. Layton Conway. - Time Spent With Patient Total time spent is greater than 50% in coordination of care (as documented) at patient's floor/unit and/or counseling patient: 25 - 35 minutes
--- NOTE | 2020-03-24 14:07 | MHC.HEMONC ---
Eligard 45mg subcutaneously right upper arm. Patient kika. well. Consent signed and in triage bin, patient education given. Per [employer] handler verbal PA recieved this morning from insurance company for eligard. Follow up in 1 week for exam and 6 months for next eligard.
--- NOTE | 2020-03-30 15:33 | MHC.HEMONCSW ---
SPOKE WITH SUE AT [facility] SUPPORT REGARDING STATUS OF FREE MED. NEEDED TO MAKE CORRECTIONS ON APPLICATION AND THIS IS FAXED BACK. WAIT DECISION.
--- NOTE | 2020-04-06 15:09 | MHC.HEMONCSW ---
2 UPDATES....... NO FORMALLY CANCELLING XTANDI SUPPORT PRESENTLY BUT WILL IN FUTURE DUE TO.... PHONED AND I SPOKE WITH DR. LEZAMA.. LAST MONDAY THEY SPOKE AND REFERRED PT TO [facility]. PER , HOSPICE WILL START AFTER DR. ANGEL DOES LASER TREATMENT ON KIDNEY STONES WHICH WILL BE IN THE NEAR FUTURE. [facility] RN FROM THEIR [facility] INVOLVED. THEY HIRED PRIVATELY A HOME HEALTH AIDE. MUCH EDUCATION AND SUPPORT PROVIDED TO , PT IS NAPPING, HIS BASELINE IS CONFUSED..
[2020-04-08 10:10] VITALS: BP 99/55; PULSE 80; RESP 16; TEMP 36.6; BMI 19.0
[2020-04-08 10:17] VITALS: O2SAT 93
[2020-04-08 10:32] LABS: MANUAL DIFF FLAG NO
[2020-04-08 10:46] LABS: Basophils Percent Auto 0.2 % (0-2); Hematocrit 34.9 % (42-52); Hemoglobin 11.1 g/dl (14.0-18.0); Imm Gran Abs Auto 0.03 X10*3/uL (0.00-0.03); Imm Gran Pct Auto 0.7 % (0.0-0.4); Lymphocytes Absolute Auto 0.8 X10*3/uL (1.2-4.9); Mean Corpuscular HGB Conc 31.8 g/dl (31.0-36.0); Mean Corpuscular Hemoglobin 31.4 pg (27.0-33.0); Mean Corpuscular Volume 98.9 fL (80-98); Mean Platelet Volume 10.4 fL (9.4-12.4); Monocytes Absolute Auto 0.4 X10*3/uL (0.1-1.2); Monocytes Percent Auto 9.5 % (2-11); Neutrophils Absolute Auto 2.8 X10*3/uL (2.0-8.3); Neutrophils Percent Auto 68.6 % (45-73); Platelet Count 141 X10*3/uL (160-400); Red Blood Count 3.53 X10*6/uL (4.60-5.80); Red Cell Distribution Width 15.8 % (11.0-16.0); White Blood Count 4.1 X10*3/uL (4.8-10.8)
--- NOTE | 2020-04-08 11:08 | MHC.HEMONCNA ---
medicare...no pa needed for denosumab. spoke with pt/. [facility] is waiting to start after urology makes decision to treat kidney stones etc. goal is [facility].
--- NOTE | 2020-04-08 11:17 | PM.HEMONCPN ---
Medical Summary - Medical Summary Date of Service: 04/08/20 Chief complaint: Follow-up for metastatic prostate cancer Medical Summary: DIAGNOSIS: PROSTATE CANCER WITH BONE METASTASES. OBSTRUCTIVE UROPATHY. LEFT LOWER EXTREMITY CELLULITIS. CURRENT THERAPY: LUPRON 45 MG RECEIVED 03 24. DENOSUMAB 120 MG TODAY. Interval History Interval history: This is a pleasant unfortunate 85 year-old gentleman who is here for a follow-up visit. He has had pain in his thighs and legs over the last couple of days. He takes Tylenol when he needs something. I offered stronger analgesics but he said it is not too bad,acceptable for now. He gets it more upon movement and getting up. He denies any other bony aches nor pains. He has been noted to have bladder stones. He is going to be scheduled for surgery by Dr. Conway. It is scheduled for 04/20. He has preop clearance on 04/13. Subsequently, he will sign on with hospice. some days he has good energy level and others he does not. He denies any fever nor chills. He Is extremely fatigued. He denies any abdominal pain nausea vomiting heartburn or indigestion. His bowels are working without any gross blood in it. His appetite is fair. He has lost weight. He was 140 lb then went down to 118 and now 125. Some of it could be the effect of Lasix. He appears a little confused. He has Parkinson's disease. He still has the Sanders catheter in. He is in good spirits. Rest of the review of systems is unremarkable. He had a prostate biopsy on 03/[address] Stuart. He was subsequently brought down after that to receive the Lupron shot. He had redness and inflammation in his left leg. He was diagnosed with cellulitis. He was started on Doxycycline. This is his 2nd course. He will finish it in a day. There is a small open area in the middle. The visiting nurses have been dressing it. It still appears rather red. I advised them to follow up with Dr. Contreras for further suggestion. His tells me his back has been distorted, chronically. He had some lower pelvic pain which was attributed to hemorrhoids. He had been doing Sitz part and using hemorrhoidal cream. Review of Systems - Constitutional Reports no additional constitutional complaints, Reports anorexia, Reports body aches, Reports fatigue, Denies fever(s), Reports weakness, Reports weight loss - Eyes Reports no additional eye complaints - ENT Reports no additional ear, nose, mouth, and throat complaints - Cardiovascular Reports no additional cardiovascular complaints - Respiratory Reports no additional respiratory complaints - Gastrointestinal Reports no additional gastrointestinal complaints - Genitourinary Genitourinary: Reports no additional male genitourinary complaints - Musculoskeletal Reports no additional musculoskeletal complaints Comments: leg pain. thigh pain - Integumentary/Breasts Skin/Breast: Reports no additional skin complaints - Neurologic Reports no additional neurologic complaints, Denies hearing normal, Reports abnormal gait - Endocrine Reports no additional endocrine complaints - Hematologic/Lymphatic Reports no additional hematologic/lymphatic complaints - Allergic/Immunologic Reports no additional allergic/immunologic complaints [facility] Medical History: Medical History (Last Reviewed 03/05/20 @ 11:00 by Enoc Thomas MD) A-fib Bladder stone CHF (congestive heart failure) CVA (cerebral vascular accident) Dementia High cholesterol [place] (hard of hearing) Ischemic cardiomyopathy Orthostatic hypotension Parkinsons Functional capacity: wheelchair bound Patient : No Home Medications and Allergies Current Medications: Current Medications Generic Name Dose Route Start Last Admin Trade Name Freq PRN Reason Stop Dose Admin Denosumab 120 mg 04/08/20 00:00 Denosumab 120 Mg/1.7 Ml Vial SUBCUT 04/08/20 23:59 ONCE [place] Home Medications Medication Instructions Recorded Confirmed Type atorvastatin 40 mg PO DAILY 03/04/20 03/17/20 History carbidopa-levodopa 1 tab PO TID 03/04/20 03/17/20 History donepezil 10 mg PO BEDTIME 03/04/20 03/17/20 History metoprolol tartrate 25 mg PO BID 03/04/20 03/17/20 History warfarin 2.5 mg PO SUTUTHSA@1600 03/04/20 04/06/20 History warfarin 5 mg PO MOWEFR@1600 03/04/20 04/06/20 History Allergies Allergy/AdvReac Type Severity Reaction Status Date / Time Penicillins Allergy Unknown SKIN Verified 04/06/20 11:28 EXCORIATION HANDS Exam Vital signs: Vital Signs Temp 98.2 F 03/16/20 15:29 Pulse 88 03/16/20 15:29 Resp 12 03/16/20 15:29 BP 96/58 L 03/16/20 15:29 Pulse Ox 99 03/16/20 15:29 Intake & Output 03/15/20 03/16/20 03/16/20 18:59 06:59 18:59 Other: Weight 53.63 kg Weight 53.63 kg Body Mass Index 17.9 - Constitutional Present: mild distress - Routine HEENT Exam Head: Present: normal inspection - Routine Neck Exam Present: full ROM - Routine Respiratory Exam Present: CTAB - Routine Cardiovascular Exam Cardiovascular: Present: RRR, S1, S2 - Routine Abdominal Exam Present: soft, nontender - Routine Extremities Exam Present: pedal edema, tenderness - Routine Back/Spine/Pelvis Exam Back/Spine: Present: paraspinal tenderness - Routine Skin Exam Present: intact, erythema, warm, rash - Routine Neurological Exam Present: alert, oriented X3 - Detailed Neurological Exam: Coma Scale Eye Opening: Spontaneous (4) Data - Labs CBC & Chem 7: 04/08/20 10:31 03/16/20 15:18 Labs: 03/16/20 15:18 Complete Blood Count Auto Diff Routine Comprehensive Met. Panel Routine Vitamin D 25-OH Total Routine 03/24/20 00:00 Leuprolide Acetate [Eligard] 45 mg SUBCUT ONCE 04/08/20 10:31 Complete Blood Count Auto Diff Routine 04/08/20 11:08 Calcium + Vitamin D [Oyster Shell Ca 250 mg-Vit D 125] 500 mg PO ONCE ONE Laboratory Last Values WBC 4.1 X10*3/uL (4.8-10.8) L 04/08/20 10:31 RBC 3.53 X10*6/uL (4.60-5.80) L 04/08/20 10:31 Hgb 11.1 g/dl (14.0-18.0) L 04/08/20 10:31 Hct 34.9 % (42-52) L 04/08/20 10:31 MCV 98.9 fL (80-98) H 04/08/20 10:31 MCH 31.4 pg (27.0-33.0) 04/08/20 10:31 MCHC 31.8 g/dl (31.0-36.0) 04/08/20 10:31 RDW 15.8 % (11.0-16.0) 04/08/20 10:31 Plt Count 141 X10*3/uL (160-400) L 04/08/20 10:31 MPV 10.4 fL (9.4-12.4) 04/08/20 10:31 Immature Gran % (Auto) 0.7 % (0.0-0.4) H 04/08/20 10:31 Neut % (Auto) 68.6 % (45-73) 04/08/20 10:31 Lymph % (Auto) 20.0 % (20-40) 04/08/20 10:31 [place] % (Auto) 9.5 % (2-11) 04/08/20 10:31 Eos % (Auto) 1.0 % (0-4) 04/08/20 10:31 Baso % (Auto) 0.2 % (0-2) 04/08/20 10:31 Lymph # (Auto) 0.8 X10*3/uL (1.2-4.9) L 04/08/20 10:31 [place] # (Auto) 0.4 X10*3/uL (0.1-1.2) 04/08/20 10:31 Eos # (Auto) 0.0 X10*3/uL (0.0-0.4) 04/08/20 10:31 Baso # (Auto) 0.0 X10*3/uL (0.0-0.2) 04/08/20 10:31 Abs Immat Gran (auto) 0.03 X10*3/uL (0.00-0.03) 04/08/20 10:31 Absolute Neuts (auto) 2.8 X10*3/uL (2.0-8.3) 04/08/20 10:31 Absolute Nucleated RBC 0.000 X10*3/uL (0.0-0.012) 04/08/20 10:31 Nucleated RBC % (auto) 0.0 /100WBC (0.0-0.2) 04/08/20 10:31 Sodium 146 mmol/L (135-145) H 03/16/20 15:18 Potassium 4.0 mmol/l (3.3-5.1) 03/16/20 15:18 Chloride 109 mmol/L (96-108) H 03/16/20 15:18 Carbon Dioxide 29 mmol/L (22-29) 03/16/20 15:18 Anion Gap 12 (12-20) 03/16/20 15:18 BUN 33 mg/dL (9-16) H 03/16/20 15:18 Creatinine 1.10 mg/dL (0.5-1.4) 03/16/20 15:18 Estim Creat Clear Calc 37.9 03/16/20 15:18 Estimated GFR > 60 03/16/20 15:18 Random Glucose 95 mg/dL (60-115) 03/16/20 15:18 Calcium 7.7 mg/dL (8.4-10.2) L 03/16/20 15:18 Total Bilirubin 0.8 mg/dL (0.0-1.0) 03/16/20 15:18 AST 17 U/L (5-37) 03/16/20 15:18 ALT 7 U/L (0-40) 03/16/20 15:18 Alkaline Phosphatase 2129 U/L (39-117) H D 03/16/20 15:18 Total Protein 6.0 g/dL (6.5-8.0) L 03/16/20 15:18 Albumin 3.4 g/dL (3.5-5.0) L 03/16/20 15:18 25-OH Vitamin D Total 13.1 ng/mL (>30) 03/16/20 15:18 Progress Note: A/P (1) Prostate cancer metastatic to bone Status: Acute Assessment and plan: This is a pleasant unfortunate 85 year-old gentleman with a previous history of hypertension, atrial fibrillation on warfarin, Parkinson's disease and vascular dementia. He presented with CHF and left lower extremity cellulitis. He has incidentally been noted to have diffuse sclerotic metastatic disease seen throughout the visualized bony structures. Previous CT scan had been normal. Bladder is a relatively distended with fullness to both renal pelves. Chronic bladder outlet obstruction. PSA elevated at 335. CEA 3.6. CA 19-9: 13. Bone scan: Widespread metastatic tumor involvement of bone with most severe involvement in the spine and thoracic cage abnormalities also present in proximal upper and lower extremities. He has Metastatic prostate cancer with bone Mets, especially given the sclerotic picture and the finding of bladder distension. At his last visit, I explained the diagnosis and guarded prognosis to the patient his , his daughter on the phone, and his son from [place]. Treatment options were discussed. He is already on the Casodex and finasteride. I offered them total androgen blockade with LHRH analogue and Enzalutamide as androgen [place] and Denosumab, a bisphosphonate for bony metastases. Details of the regimen including potential side effects were addressed with them. Written literature was provided. They met with our porter sample case about prescription coverage and setting up palliative care. I have written the prescription and given it for insurance prior authorization. He had the prostate biopsy done. He was given Lupron, an LHRH analogue, on 03/24. PLAN: He is here to receive denosumab. They were given detailed information and a handout. He will be getting calcium 600 mg a day at home. We are trying to get the enzalutamide approved by insurance. He will start that once it is approved. They will return in a month for a follow-up visit. All the questions were answered to their satisfaction. l have arranged for home health services. Thank you, cc: Dr. Lawson. Dr. Layton Conway. - Time Spent With Patient Total time spent is greater than 50% in coordination of care (as documented) at patient's floor/unit and/or counseling patient: 25 - 35 minutes
[2020-04-08] MEDS: Calcium + Vitamin D 250 MG TABLET 500 MG PO (11:26)
[2020-04-08 11:39] LABS: Alanine Aminotransferase < 6 U/L (0-40); Albumin Level 3.6 g/dL (3.5-5.0); Alkaline Phosphatase 1364 U/L (39-117); Anion Gap 12 (12-20); Aspartate Amino Transferase 15 U/L (5-37); Bilirubin Total 0.8 mg/dL (0.0-1.0); Blood Urea Nitrogen 36 mg/dL (9-16); Calcium 8.3 mg/dL (8.4-10.2); Carbon Dioxide 29 mmol/L (22-29); Chloride 105 mmol/L (96-108); Creatinine Clr Calc Pharmacy 37.7; Estimated Glomerular Filt Rate > 60; Glucose Random 93 mg/dL (60-115); Potassium 4.1 mmol/l (3.3-5.1); Sodium 142 mmol/L (135-145)
[2020-04-08 12:21] LABS: PSA,Total (Free>4and<10) 42.24 ng/mL (0.00-4.00)
--- NOTE | 2020-04-08 13:02 | MHC.HEMONC ---
Labs drawn. Patient recieved injection into arm as documented. Patient seen provider. Follow-ups booked.
--- NOTE | 2020-04-13 10:48 | MHC.HEMONC ---
Oxycodone Rx - Mrs. Green called re: Lakhwinder c/o R rib pain all day yesterday and into the evening w difficulty rolling over in bed. Despite taking Tylenol the discomfort continues today. Per Dr. Jones, Oxycone 5mg q 4 hrs #30 tabs w 0 rf's was written. Mrs. Green will p/up rx today. She was advised on posible SE's and to start Lakhwinder on stool softner 1 daily while taking this, unless he is having soft stools. H will need to have assistance with ambulating as meds can present as a fall risk. Mrs Green agrees to this POC. Rx p/up @ 1150am.
== END | disposition home or self-care (01) ==
LOC: HO.ONC 03-16 14:54
PROVIDERS: PCP Internal Medicine; Visit Provider Internal Medicine Medical Oncology
DX: C61 Malignant neoplasm of prostate (principal); C79.51 Secondary malignant neoplasm of bone; N13.9 Obstructive and reflux uropathy, unspecified; G20 Parkinson's disease; L03.116 Cellulitis of left lower limb; I50.9 Heart failure, unspecified; I48.91 Unspecified atrial fibrillation; Z79.01 Long term (current) use of anticoagulants
CPT/HCPCS: 36415; 80053; 82306; 84153; 85025; 96372; 96402; 99214; J0897; J9217